=== PATIENT | male | born 1970 | race Hispanic/Latino ===

== ENCOUNTER 2019-11-29 10:02 | Inpatient (IN) | payer SELFPAY ==
[2019-11-29] MEDS ORDERED: Pantoprazole 40 MG VIAL ONE (10:21)
[2019-11-29 11:06] LABS: Hemoglobin 8.1 g/dL (14.0-18.0); Mean Corpuscular HGB CONC 30.7 g/dL (32.0-36.0); Mean Corpuscular Hemoglobin 32.3 pg (27.0-31.0); Mean Platelet Volume 10.6 fL (7.4-10.4); Platelet Count 255 thou/uL (130-400); RBC Distribution Width 14.7 % (11.5-14.5); Red Blood Cell (RBC) Count 2.52 mill/uL (4.70-6.10); White Blood Cell (WBC) Count 22.2 thou/uL (4.8-10.8)
--- NOTE | 2019-11-29 11:06 | RAD ---
PORTABLE CHEST 1 VIEW: Date: 11/29/2019 Time: 1059 hours HISTORY: Chest pain. FINDINGS: The heart size is normal. The aorta is tortuous. The lungs are well expanded without lobar consolidat ion, pneumothoraces, or pleural effusions. IMPRESSION: No acute process. POS: TPC
[2019-11-29 11:12] LABS: INR-International Normal Ratio 1.4; PTT 25.7 SEC (22.9-36.1); Prothrombin Time 16.8 SEC (12.0-14.7)
[2019-11-29] MEDS ORDERED: Vancomycin 1 GM/200 ML BAG ONE (11:26)
[2019-11-29] MEDS ORDERED: Cefepime 2 GM VIAL ONE (11:26)
[2019-11-29 11:36] LABS: Band 19 % (5-11); Hypochromia SLIGHT = 6-15 cells (100X) (0-5/hpf); Lymphocytes 18 % (21-51); MDiff Complete? YES; Metamyelocyte 1 % (0-0); Monocytes 1 % (0-10); Myelocyte 2 % (0-0); Neutrophil 59 % (42-75); Nucleated RBC 2 % (0); Platelet Morphology Comment Appears Adequate; Polychromasia MARKED = >4 cells (100X) (0-2/hpf)
[2019-11-29 11:40] LABS: ALT (SGPT) 62 U/L (8-55); AST (SGOT) 48 U/L (5-34); Albumin 2.6 g/dL (3.5-5.0); Alkaline Phosphatase 285 U/L (40-110); Anion Gap 32 mmol/L (10-20); BUN (Urea Nitrogen) 54 mg/dL (8.9-20.6); Bilirubin, Total 1.4 mg/dL (0.2-1.2); CK (CPK) 79 U/L (30-200); Calc. Creatinine Clearance 0 mL/min (70-130); Calcium 9.4 mg/dL (7.8-10.44); Carbon Dioxide 11 mmol/L (22-29); Chloride 108 mmol/L (98-107); Estimated GFR-MDRD 58; Globulin 3.2 g/dL (2.4-3.5); Lipase 135 U/L (8-78); Magnesium 2.4 mg/dL (1.6-2.6); Protein, Total 5.8 g/dL (6.0-8.3); Sodium 146 mmol/L (136-145)
[2019-11-29 11:45] LABS: Glucose 644 mg/dL (70-105)
[2019-11-29] MEDS ORDERED: Insulin Regular 300 UNITS/3 ML VIAL ONE (11:57)
--- NOTE | 2019-11-29 12:15 | PDOC.FPRHP ---
- History of Present Illness Chief Complaint: vomiting blood and lathargic. History of Present Illness: 49yo frisian-speaking male with PMHx of DMII and cirrhosis, off all medications for past 4 years and has seen physician during that time presents via EMS per hossein wishes. Pt history obtained via tail puller. Pt poor historian and himself does not endorse any complaints. Much of history obtained via justus at beside. Per justus, had episode of CP, L arm numbness, and hematemasis on Monday night. Pt himself denies complaints and denies the event itself. This morning was noticed by room mate to need help as pt was lethargic and unable to keep balance. Pt slipped and fell in the bathroom. hossein was called and called 911 for Ambulance picked pt up from house and brought to the ED. Pt denies any pain, and no further CP. Complaints of recent 8lb weight loss, increased urination and thirst. Pt was admitted approx 5 years ago for similar presentation and at that time diagnosed with DMII and cirrhosis. Was discharged and on insulin for about 1 year but since has been off and has not seen physician. ED Course: given 5 units insulin, vanc and cefepime. given protonix. 1L NS and 2L LR. - Allergies/Adverse Reactions Allergies Allergy/AdvReac Type Severity Reaction Status Date / Time No Known Drug Allergies Allergy Verified 11/29/19 12:30 - Home Medications Comments: none - History PMHx: cirrhosis from etoh use, DM type II was previously on metformin and insulin. PSHx: none FHx: mother: DM. father: DM, passed in his sleep. Social: smokes cigarettes occasionally, denies etoh use currently prior alcoholic with >15 beers /day and stopped 5 years ago. Denies illicit drug use. Has [facility]. Code status: Full code - Review of Systems General: reports: weight/appetite/sleep changes (8 lb loss) Eyes: denies: eye pain, vision changes ENT: denies: nasal congestion Respiratory: denies: cough Cardiovascular: denies: chest pain, edema Gastrointestinal: reports: nausea, vomiting, abdominal pain, GI bleeding Skin: denies: rashes Musculoskeletal: reports: other. denies: pain, swelling Neurological: reports: numbness (B bottom feet, burning pain for 3 years.), weakness (generalized with falling.) - Vital signs BP: 95/62 HR: 120 RR: 15 Tmax: 97.6 Pox: 100% on ra Wt: 45kg - Physical Exam Constitutional: NAD, awake, alert and oriented, other (cachectic appearing) HEENT: PERRLA, EOMI, other (dry MM, poor dentition) Neck: trachea midline Heart: RRR, normal S1/S2, no murmurs/rubs/gallops, pulses present, no edema Lungs: CTAB, no respiratory distress, good air movement, no rales/rhonchi, no wheezing Abdomen: soft, non-tender, bowel sounds present Musculoskeletal: other (decreased muscle mass) Neurological: no focal deficit, normal sensation Skin: no rash/lesions FMR H&P: Results - Labs Result Diagrams: 11/29/19 10:51 11/29/19 13:57 Lab results: WBC 22.2 thou/uL (4.8-10.8) H 11/29/19 10:51 Hgb 8.1 g/dL (14.0-18.0) L 11/29/19 10:51 Hct 26.5 % (42.0-52.0) L 11/29/19 10:51 MCV 105.0 fL (78.0-98.0) H 11/29/19 10:51 Plt Count 255 thou/uL (130-400) 11/29/19 10:51 Band Neuts % (Manual) 19 % (5-11) H 11/29/19 10:51 Sodium 146 mmol/L (136-145) H 11/29/19 10:51 Potassium 5.0 mmol/L (3.5-5.1) 11/29/19 10:51 Chloride 108 mmol/L (98-107) H 11/29/19 10:51 Carbon Dioxide 11 mmol/L (22-29) L 11/29/19 10:51 BUN 54 mg/dL (8.9-20.6) H 11/29/19 10:51 Creatinine 1.30 mg/dL (0.7-1.3) 11/29/19 10:51 Glucose 644 mg/dL (70-105) H* 11/29/19 10:51 Lactic Acid 17.0 mmol/L (0.5-2.2) H* 11/29/19 10:51 Calcium 9.4 mg/dL (7.8-10.44) 11/29/19 10:51 Total Bilirubin 1.4 mg/dL (0.2-1.2) H 11/29/19 10:51 AST 48 U/L (5-34) H 11/29/19 10:51 ALT 62 U/L (8-55) H 11/29/19 10:51 Alkaline Phosphatase 285 U/L (40-110) H 11/29/19 10:51 Ammonia 64 umol/L (18-72) 11/29/19 11:06 Creatine Kinase 79 U/L (30-200) 11/29/19 10:51 B-Natriuretic Peptide 18.8 pg/mL (0-100) 11/29/19 10:51 Serum Total Protein 5.8 g/dL (6.0-8.3) L 11/29/19 10:51 Albumin 2.6 g/dL (3.5-5.0) L 11/29/19 10:51 Lipase 135 U/L (8-78) H 11/29/19 10:51 - EKG Interpretation EKG: Sinus tachycardia. No axis dev, no acute T wave or ST changes. - Radiology Interpretation Chest x-ray Status: report reviewed by me (no acute CPP) FMR H&P: A/P - Problem List (1) DKA (diabetic ketoacidoses) Current Visit: Yes Status: Acute Code(s): E11.10 - TYPE 2 DIABETES MELLITUS WITH KETOACIDOSIS WITHOUT COMA (2) Upper GI bleed Current Visit: Yes Status: Acute Code(s): K92.2 - GASTROINTESTINAL HEMORRHAGE, UNSPECIFIED (3) Macrocytic anemia Current Visit: Yes Status: Acute Code(s): D53.9 - NUTRITIONAL ANEMIA, UNSPECIFIED (4) Cirrhosis of liver Current Visit: Yes Status: Acute Code(s): K74.60 - UNSPECIFIED CIRRHOSIS OF LIVER (5) SIRS (systemic inflammatory response syndrome) Current Visit: Yes Status: Acute Code(s): R65.10 - SIRS OF NON-INFECTIOUS ORIGIN W/O ACUTE ORGAN DYSFUNCTION (6) Lactic acidosis Current Visit: Yes Status: Acute Code(s): E87.2 - ACIDOSIS (7) JUS (acute kidney injury) Current Visit: Yes Status: Acute Code(s): N17.9 - ACUTE KIDNEY FAILURE, UNSPECIFIED (8) Severe protein-calorie malnutrition Current Visit: Yes Status: Acute Code(s): E43 - UNSPECIFIED SEVERE PROTEIN- CALORIE MALNUTRITION - Plan 49 y/o M admitted to [facility] for insulin drip to treat DKA. 1. DKA - glu 644, corrected NA 155, K 5.0, Bhb 1.95, Lactic Acid 17, anion gap 32 - given 10 units insulin in ED, started on banana bag , and 3 L IVF bolus ordered - Start insulin drip and DKA protocol. 2. SIRs, tachycardia and WBC 22.2 - most likely due to being dehydrated and hemconcentrated. - will monitor closely for improvement once adequately resuscitated 3. Upper GI bleed - H/H 8.1/26.6 - ABG showed hgb 6.7, will transfuse 1 unit pRBC - Continue protonix bid - will consider GI consult, due to possible esophageal varices in setting of cirrhosis 4. Macrocytic anemia - MCV 105 - ordered iron studies, b12 and folate 5. Cirrhosis, from alcohol use - ordered RUQ sonogram - ordered HIV/RPR/Hep B and C - INR: 1.4 - MELD score: 14 6. Sever protein malnutrition - Cachetic appearance - albumin 2.6 - dietary consulted 7. Lactic Acidosis - most likely due to DKA and anion gap acidosis - will recheck in 2 hours / 8. JUS - Cr 1.3 - will monitor closely for improvement, most likely from dehydration from dka. Code status: full code Diet: NPO, CC when off insulin drip DVT ppx: SCD's Dispo: stable, admit to [facility] for insulin drip and DKA protocol Q4H BMP FMR H&P: Upper Level - Plan Date/Time: 11/29/19 1215 Alexandro Ramírez, have evaluated this patient with the purchasing internship and agree with findings/plan as outlined by purchasing internship resident. Pertinent changes/additions are listed here. This is a 49 yo male with a pmh alcoholic cirrhosis, DM2 who presents to the ED with cc of AMS and generalized weakness. He states that he has not taken anything for his diabetes in over 5 years and has not had any hospitalizations. He reports polyuria, polydipsia. He reports some nausea with bloody emesis on Monday. Today he was seen by some friends who noted him falling over and very weak. The called the pts justus who called EMS. She also reports that he was complaining of chest pain with radiation to his left arm, but the patient denies this. He states he has not seen in many years and is unsure what medications he had in the past. Objective: Vitals BP 95/62, HR 122, RR 16, SpO2 100% on room air, Temp 97.4 General: Lethargic, GCS [id number], Cachectic HEENT: Dry mm, poor dentition Cardio: Tachycardic, no murmurs Resp: CTAB, no adventious sounds Abdomen: Flat, BS+, mild diffuse tenderness, no rebound tenderness Extremities: Normal monofilament exam on feet, pulses present, nails slightly thickened See purchasing internship note for further details Diabetic Ketoacidosis -Admit to IMCU -DKA protocol -Monitor potassium and replace as needed -CM for medication affordance -Anion gap of 32 SIRS without a source -Likely 2/2 above Lactic acidosis -Likely 2/2 dehydration, will repeat Upper GI bleed -Not actively bleeding, will monitor -Consider GI consult when more stable -Monitor Hgb and transfuse one unit Alcoholic cirrhosis -Pending RUQ US -Hep panel, RPR -Recommend Hep A/B vaccine upon DC -Meld score 14 History of alcohol abuse -UDS Calorie-protein malnutrition -Consult volunteer fire fighter Code: Full Prophylaxis: protonix, SCDs Family: Fianc at bedside Fluids: per DKA protocol Drips: Insulin drip Diet: NPO Condition: Stable Disposition: DC in 2-3 days PCP: None, CC Addendum - Attending - Attending Attestation Date/Time: 11/29/19 1500 I personally evaluated the patient and discussed the management with Dr. Saldaña. I agree with the History, Examination, Assessment and Plan documented above with any addition or exceptions noted below. 49 y.o. ARENAS with h/o DM2, ETOH cirrhosis, here with lethargy, CP, numbness found to have hyperglycemia, AG Acidosis->DKA. IMCU, IVF resuscitation, Insulin GTT, Lyte mgt. Also c/o's hematemesis, though not acutely since admit. H/o cirrhosis--will consult GI. NAD, Lungs CTA BBS, RRR w/o M/R/G.
[2019-11-29] MEDS ORDERED: HUMULIN R 100 UNITS in Sodium Chloride 0.9% 100 ML IVPB SCH ×2 (12:30→13:00)
[2019-11-29] MEDS ORDERED: CCU Electrolyte Replacement 1 EACH IVPB ONE (12:55)
[2019-11-29] MEDS ORDERED: NS 0.9% w/ 20 MEQ KCL 1,000 ML IV PRN (12:55)
[2019-11-29] MEDS ORDERED: Dextrose 5 %-0.45 % NaCl 1,000 ML IV PRN (12:55)
[2019-11-29] MEDS ORDERED: Sodium Chloride 0.9% 1,000 ML IV PRN ×4 (12:55)
[2019-11-29] MEDS ORDERED: CCU ELECTROLYTE REPLACEMENT PROTOCOL FS PRN (13:18)
[2019-11-29] MEDS ORDERED: Magnesium Oxide 400 MG TAB PO PRN ×2 (13:18)
[2019-11-29] MEDS ORDERED: Potassium Phosphate 12 MMOL in Sodium Chloride 0.9% 250 ML 250 ML IV PRN (13:18)
[2019-11-29] MEDS ORDERED: Potassium Chloride 20 MEQ TAB PO PRN (13:18)
[2019-11-29] MEDS ORDERED: PHOS-NAK 1 PKT PACK PO PRN ×2 (13:18)
[2019-11-29] MEDS ORDERED: Potassium Chloride 40 MEQ in Sodium Chloride 0.9% 250 ML 250 ML IVPB PRN (13:18)
[2019-11-29] MEDS ORDERED: Potassium Phosphate 15 MMOL in Sodium Chloride 0.9% 250 ML 250 ML IV PRN (13:18)
[2019-11-29] MEDS ORDERED: Potassium Chloride 40 MEQ in Premix Bag 1 BAG IVPB PRN (13:18)
[2019-11-29] MEDS ORDERED: Potassium Phosphate 9 MMOL in Sodium Chloride 0.9% 100 ML IVPB PRN (13:18)
[2019-11-29] MEDS ORDERED: Magnesium 2 GM/50 ML 2 GM in Premix Bag 1 BAG IVPB PRN (13:18)
[2019-11-29 13:26] LABS: Actual Bicarbonate (HCO3a) 10.5 mEq/L (22-28); Analyzer IN Cardio ER; Base Excess (BEa) -14.6 mEq/L (-2.0 to +3.0); Calcium, Ionized 1.25 mmol/L (1.12-1.30); Carboxyhemoglobin (COHb) 0.3 gm% (0.0-3.0); Hemoglobin (Hb) 6.7 g/dL (14.0-18.0); O2 Tension (PaO2) 112.8 mmHg (80.0-100.0); Potassium - ABG Lab 3.77 mmol/L (3.70-5.30)
[2019-11-29 13:28] LABS: ALV-art Gradient 9.305 (0-20); CO2 Tension 22.1 mmHg (35.0-45.0); Puncture Site RBA
[2019-11-29] MEDS ORDERED: Multivitamins, Adult 10 ML, Thiamine HCl 100 MG, Folic Acid 1 MG in Dextrose 5 %-0.45 %... IV SCH (13:30)
[2019-11-29 13:34] LABS: Bilirubin Negative (Negative); Blood, Urine Negative (Negative); Clarity Clear (Clear); Glucose, Urine (Dipstick) Greater than 1000 mg/dL (Negative); Leukocyte 25 Leu/uL (Negative); Mucous/LPF Rare LPF (<2+); Nitrite Negative (Negative); Protein, Urine (Dipstick) Negative (Neg-Trace); RBC/HPF 0-3 HPF (0-3); Squamous Epithelial 0-3 HPF (0-3); Urobilinogen Normal mg/dL (Less than 2); WBC/HPF 0-3 HPF (0-3)
[2019-11-29 13:39] LABS: Bacteria/HPF 1+ HPF (None Seen)
[2019-11-29 13:42] LABS: Yeast-Budding 1+ HPF (None Seen)
[2019-11-29 14:38] LABS: Anion Gap 25 mmol/L (10-20); BUN (Urea Nitrogen) 53 mg/dL (8.9-20.6); Calc. Creatinine Clearance 0 mL/min (70-130); Calcium 8.9 mg/dL (7.8-10.44); Carbon Dioxide 13 mmol/L (22-29); Chloride 114 mmol/L (98-107); Estimated GFR-MDRD 63; Glucose 537 mg/dL (70-105); Magnesium 2.3 mg/dL (1.6-2.6); Phosphorus 3.3 mg/dL (2.3-4.7); Potassium 4.8 mmol/L (3.5-5.1); Sodium 147 mmol/L (136-145)
[2019-11-29 14:39] LABS: Iron 106 ug/dL (65-175); Iron Binding Capacity, Total 206 mcg/dL (261-462)
[2019-11-29 14:43] LABS: Troponin I Less than 0.010 ng/mL (< 0.028)
[2019-11-29 14:48] VITALS: BMI 17.3
[2019-11-29 14:56] LABS: Syphilis Antibody Nonreactive (Nonreactive); Syphilis Antibody Index 0.04 S/CO (<1.00 Non-Reactive)
[2019-11-29 14:57] LABS: Ferritin 256.78 ng/mL (22-322)
--- NOTE | 2019-11-29 15:07 | ULT ---
EXAM: US Gallbladder RUQ CLINICAL HISTORY: Cirrhosis.. COMPARISON: None. FINDINGS: Pancreas: Obscured by bowel gas Liver:Heterogeneous echotexture which may be due to hepatic steatosis or hepatocellular disease. Limi ludwin evaluation for hepatic masses and intrahepatic biliary dilatation. Right hepatic lobe: 12.1 cm Gallbladder: Multiple echogenic foci of debris within the lumen of gallbladder. Gallbladder wall is t hickened measuring 0.42 cm. There is evidence of pericholecystic fluid as well as free fluid in the right upper quadrant. Oswald's sign:Negative Portal Vein: Limited evaluation. Possible portal vein occlusion. Bile ducts: Limited evaluation. Right kidney: No hydronephrosis. Right kidney measures 10.1 cm in length. IMPRESSION: 1. Ascites. 2. Echogenic liver which may be due to hepatic steatosis or hepatocellular disease. Limited evaluatio n for hepatic masses. 3. Debris and stones within the gallbladder. Gallbladder wall is thickened. There is evidence of free fluid in the gallbladder fossa which may be due to ascites. Negative Oswald's sign. HIDA scan if there is concern for cholecystitis. 4. Possibly thrombosed portal vein. Abdomen and pelvic CT is recommended. Results study conveyed to Dr. Colby via [employer] 11/29/2019 at 3:04 PM Code CR
[2019-11-29 15:13] LABS: HBSAB Concentration 0.74 mIU/mL; HBSAg Index 0.16 S/CO (0-0.99); HIV (1/2) Antibody/Antigen Non-Reactive (NonReactive); HIV 1/2 INDEX 0.08 S/CO (<1.00); Hep B Core Total Ab Non-Reactive (NonReactive); Hep B Core Total Index 0.06 S/CO (0-0.79); Hep B Surf AB Non-Reactive (NonReactive); Hep B Surf Ag Non-Reactive S/CO (NonReactive)
[2019-11-29 15:17] LABS: Lactic Acid 15.4 mmol/L (0.5-2.2)
[2019-11-29] MEDS: NS 0.9% w/ 20 MEQ KCL 1,000 ML IV PRN ×2 (17:48→19:52)
[2019-11-29 18:55] LABS: Hemoglobin 6.7 g/dL (14.0-18.0)
[2019-11-29 19:13] LABS: Anion Gap 11 mmol/L (10-20); BUN (Urea Nitrogen) 45 mg/dL (8.9-20.6); Calc. Creatinine Clearance 67 mL/min (70-130); Calcium 7.9 mg/dL (7.8-10.44); Carbon Dioxide 20 mmol/L (22-29); Chloride 119 mmol/L (98-107); Estimated GFR-MDRD Greater than 90; Glucose 404 mg/dL (70-105); Potassium 4.6 mmol/L (3.5-5.1); Sodium 145 mmol/L (136-145)
[2019-11-29 19:20] LABS: Anisocytosis SLIGHT = 6-15 cells (100X) (0-5/hpf); Band 28 % (5-11); Hemoglobin 6.6 g/dL (14.0-18.0); Hypochromia SLIGHT = 6-15 cells (100X) (0-5/hpf); Lymphocytes 17 % (21-51); MDiff Complete? YES; Mean Corpuscular HGB CONC 32.6 g/dL (32.0-36.0); Mean Corpuscular Hemoglobin 32.4 pg (27.0-31.0); Mean Corpuscular Volume 99.6 fL (78.0-98.0); Mean Platelet Volume 9.5 fL (7.4-10.4); Metamyelocyte 2 % (0-0); Myelocyte 3 % (0-0); Neutrophil 50 % (42-75); Nucleated RBC 1 % (0); Platelet Count 162 thou/uL (130-400); Polychromasia SLIGHT = 2-3 cells (100X) (0-2/hpf); RBC Distribution Width 14.3 % (11.5-14.5); Red Blood Cell (RBC) Count 2.04 mill/uL (4.70-6.10); Schistocytes SLIGHT = 2-5 cells (100X) (0-1/hpf); White Blood Cell (WBC) Count 21.3 thou/uL (4.8-10.8)
--- NOTE | 2019-11-29 20:56 | CON ---
DATE OF CONSULTATION: 11/29/2019 REASON FOR CONSULTATION: Cirrhosis, portal vein thrombosis. CONSULTING PROVIDER: Dr. Jerson Colby. HISTORY OF PRESENT ILLNESS: The patient is a 49-year-old male with past medical history of diabetes, chronic anemia, hyperlipidemia, and alcoholic cirrhosis, presenting with complaints of increased lethargy, chest pain, and hematemesis. The patient states that he was in his usual state of health until earlier this week when he began experiencing increased chest pain, lethargy, along with nausea and vomiting with 2 episodes of hematemesis on Monday night. This was followed by the appearance of one solid black stool following day, but he has not had any further episodes of hematemesis nor hematochezia/melena since then. With his worsening condition, it prompted him to seek healthcare assistance (at the insistence of his fiancee) at [facility] for further evaluation. While in the ER, he was noted to have a significantly elevated blood sugar level and was in diabetic ketoacidosis. He was ultimately admitted to the IMCU for further evaluation and treatment of his DKA. Currently, he endorses weakness in his bilateral lower extremities, increased abdominal distention in the past, but not currently, and jaundice along with systemic itching with the appearance of the jaundice. However, he currently denies any fevers, chills, shortness of breath, lower extremity swelling, diarrhea, or constipation. Upon evaluation of the patient's chart, he states he was initially diagnosed with cirrhosis in 2009 by a physician, who told him that if he stopped drinking, that the cirrhosis would ultimately improve and go away. However, upon further chart review, the patient did have evidence of cirrhosis in 2014. Per imaging obtained at [facility] at that time, he adds that he has not had any alcohol for the last 5 to 6 years. REVIEW OF SYSTEMS: A 10-category review of systems was obtained with all responses negative except for the pertinent positives as listed in HPI. PAST MEDICAL HISTORY: As per HPI. PAST SURGICAL HISTORY: None. FAMILY HISTORY: Denies any GI malignancies. SOCIAL HISTORY: Denies any alcohol or illicit drug use. Smokes approximately 1/4 pack per day. OUTPATIENT MEDICATIONS: None. ALLERGIES: NO KNOWN DRUG ALLERGIES. PHYSICAL EXAMINATION: VITAL SIGNS: Temperature 98.2, pulse 117, blood pressure 133/72, respiratory rate 14, saturating 100% on room air. GENERAL: The patient was lying in bed, in no acute distress. Alert and oriented x4, Pashto-speaking only. HEENT: Normocephalic, atraumatic. NECK: Supple. No JVD or scleral icterus noted. CARDIOVASCULAR: Tachycardic rate, but regular rhythm with no discernible murmurs, gallops, or rubs. RESPIRATORY: Clear to auscultation bilaterally with no discernible wheezes or rales. ABDOMEN: Hypoactive bowel sounds. Soft. Mild to no abdominal distention. Mild tenderness to palpation in all abdominal quadrants. EXTREMITIES: No cyanosis, clubbing, or edema. Multiple ecchymoses and excoriations seen on both the upper and lower limbs. LABORATORY DATA: CBC with a white blood cell count of 22.2, hemoglobin 8.1, hematocrit 26.5, platelets 255. Chemistry with a sodium of 147, potassium 4.8, chloride 114, CO2 of 13, , creatinine 1.21, glucose 537. AST 48, ALT 62, alkaline phosphatase 285, total bilirubin 1.4, albumin 2.6, lipase 135. INR 1.4. Iron 106, ferritin 256, TIBC 206. Acute hepatitis panel negative and HIV negative. IMAGING DATA: Right upper quadrant ultrasound obtained on November 28 showed heterogeneous texture of the liver secondary to steatosis or hepatocellular disease. The exam was limited for the evaluation of hepatic masses. Multiple echogenic foci were seen in the gallbladder with pericholecystic fluid and gallbladder wall thickening concerning for cholecystitis. There was also evidence of possible portal vein occlusion as well as the presence of small ascites. ASSESSMENT AND PLAN: The patient is a 49-year-old male with past medical history of diabetes, chronic anemia, hyperlipidemia, and cirrhosis, presenting with diabetic ketoacidosis and what appears to be decompensated cirrhosis with recent hematemesis. 1. Hematemesis. The patient is presenting with 2 episodes of hematemesis that he characterized as dark black colored emesis, that was followed by the appearance of a dark black solid stool the following day. While the patient does have a concurrent history of cirrhosis of the liver with concern for esophageal varices, this pattern of bleeding does not necessarily fit an esophageal varix bleed, but could be due to portal hypertension with nausea and vomiting secondary to early diabetic ketoacidosis or even peptic ulcer disease. Differential for his hematemesis could include portal hypertension, peptic ulcer disease, esophagitis, gastritis, esophageal varices, arteriovenous malformation, Dieulafoy lesion and/or GI neoplasm (less likely). Recommendations;. a. Would continue to monitor the patient's H and H. Would continue to trend the patient's H and H and transfuse as necessary to maintain an H and H of at least 7/21. b. Continue to monitor clinically for signs of active GI bleeding. c. Would continue the patient on pantoprazole 40 mg IV b.i.d. d. Would consider placing the patient on octreotide drip in light of possible variceal bleeding. e. Would continue to aggressively treat his diabetic ketoacidosis and once stabilized, would recommend an upper endoscopy for evaluation of the etiology of his hematemesis. f. Would monitor the patient's volume status and if volume overloaded, could exacerbate variceal bleeding. Would consider use of periodic Lasix in order to combat hypervolemia. 2. Cirrhosis. The patient is presenting with a history of cirrhosis with the most likely etiology being chronic alcohol use and with evident cirrhosis consisting of cirrhotic morphology in 2015 in addition to imaging consistent with the diagnosis at this time. He also has presence of hypoalbuminemia, but it is unclear if this is due to nutritional status versus cirrhosis of the liver. Since the diagnosis in our system, he has not been regularly followed by any physician nor route relief driver for his cirrhosis and has not undergone regular maintenance for cirrhosis including screening for esophageal varices, screening colonoscopy, or screening for hepatocellular carcinoma. Currently, with decompensated disease with MELD score of 13 and Child-Diaz classification B. recommendations;. a. Would recommend obtaining a CT scan 3-phase of the liver for evaluation of possible hepatoma contributing to his possible portal vein thrombosis and further characterization of the portal vein thrombosis. b. Anticoagulation is not indicated at this time, given the higher likelihood of chronic pain of portal vein thrombosis and cirrhosis of the liver. c. Would obtain a paracentesis for his ascites and rule out SBP in light of his abdominal pain on physical examination. d. Would obtain an AFP again for evaluation of possible hepatocellular carcinoma. e. Would normally recommend screening upper endoscopy and colonoscopy for this patient, but we will hold off on these for now while his diabetic ketoacidosis is being managed. We will continue to follow. Please call with any questions. Job ID: [id number]
[2019-11-29] MEDS: Octreotide Acetate 1,250 MCG in Sodium Chloride 0.9% 250 ML 250 ML IVPB SCH (21:38)
[2019-11-29] MEDS: Pantoprazole 40 MG VIAL IVP SCH (21:38)
[2019-11-29 21:44] LABS: Anion Gap 9 mmol/L (10-20); BUN (Urea Nitrogen) 41 mg/dL (8.9-20.6); Calc. Creatinine Clearance 72 mL/min (70-130); Calcium 7.8 mg/dL (7.8-10.44); Carbon Dioxide 22 mmol/L (22-29); Chloride 121 mmol/L (98-107); Estimated GFR-MDRD Greater than 90; Glucose 317 mg/dL (70-105); Potassium 4.5 mmol/L (3.5-5.1); Sodium 147 mmol/L (136-145)
--- NOTE | 2019-11-29 23:00 | CT ---
CLINICAL HISTORY: Left upper abdominal pain with possible portal vein thrombosis. TECHNIQUE: Multiple contiguous axial images were obtained and a CT of the abdomen without and with IV contrast. Postcontrast images were obtained in the arterial and portal venous phases. Coronal and sagittal reformats were performed. Oral contrast was administered. COMPARISON: None. FINDINGS: Liver: Size: Normal. Contour: Smooth. Mass: None. A thrombus is seen within the main portal vein extending into the liver. This appeared mesenteric vei n and splenic vein are patent. Multiple esophageal varices are seen. There is the beginning of cavernous transformation of the portal vein in the caroline hepatis. Gallbladder and biliary system: Calcified gallstones in the neck. No biliary ductal dilatation. Spleen: Normal. Pancreas: Normal. Kidneys: Normal. Adrenal glands: Normal. GI tract: Normal. Abdominal aorta and its major branches: Normal. No aneurysm. Peritoneum/retroperitoneum: Mild ascites. No adenopathy. Body wall and musculoskeletal: Degenerative changes in the spine. Visualized lower thorax: Normal. No pulmonary parenchymal mass or pleural effusion. IMPRESSION: 1. Portal vein thrombosis with developing varices and cavernous transformation of the portal vein. 2. Cholelithiasis
[2019-11-29] MEDS: D5 1/2 NS w/20 mEq KCL 1,000 ML IV PRN (23:17)
[2019-11-30] MEDS: D5 1/2 NS w/20 mEq KCL 1,000 ML IV PRN (03:33)
[2019-11-30 04:09] LABS: ALT (SGPT) 51 U/L (8-55); AST (SGOT) 55 U/L (5-34); Albumin 2.1 g/dL (3.5-5.0); Alkaline Phosphatase 189 U/L (40-110); Anion Gap 9 mmol/L (10-20); BUN (Urea Nitrogen) 34 mg/dL (8.9-20.6); Bilirubin, Total 0.8 mg/dL (0.2-1.2); Calc. Creatinine Clearance 82 mL/min (70-130); Calcium 7.4 mg/dL (7.8-10.44); Carbon Dioxide 20 mmol/L (22-29); Chloride 121 mmol/L (98-107); Estimated GFR-MDRD Greater than 90; Globulin 2.4 g/dL (2.4-3.5); Glucose 125 mg/dL (70-105); Potassium 4.1 mmol/L (3.5-5.1); Protein, Total 4.5 g/dL (6.0-8.3); Sodium 146 mmol/L (136-145)
--- NOTE | 2019-11-30 06:55 | PDOC.FM ---
- Subjective Subjective: Doign well this AM c/o slight abd pain. receiving abd sono at moment. Gap closed and coming off insulin drip soon to feed after bolus insulin given. - Objective MAR Reviewed: Yes Vital Signs & Weight: Vital Signs (12 hours) Temp Resp 11/30/19 04:00 98.6 F 11/30/19 03:28 14 11/30/19 00:00 98.1 F 11/29/19 19:52 98.6 F Weight Weight 45.8 kg Most Recent Monitor Data Heart Rate from ECG 87 NIBP 100/56 NIBP BP-Mean 70 Respiration from ECG 14 SpO2 100 I&O: 11/28/19 11/29/19 11/30/19 06:59 06:59 06:59 Intake Total 3738 Output Total 325 Balance 3413 Result Diagrams: 11/30/19 09:23 11/30/19 13:08 Phys Exam - Physical Examination Constitutional: NAD HEENT: moist MMs scleral icterus Neck: no nodes, supple Respiratory: no wheezing, no rales, no rhonchi, clear to auscultation bilateral Cardiovascular: RRR, no significant murmur, no rub Gastrointestinal: soft, no distention, positive bowel sounds slight diffuse abd TTP Musculoskeletal: no edema, pulses present Neurological: non-focal, moves all 4 limbs Psychiatric: normal affect, A&O x 3 Skin: no rash, normal turgor, cap refill <2 seconds Deviation from normal: jaundice skin Dx/Plan (1) DKA (diabetic ketoacidoses) Code(s): E11.10 - TYPE 2 DIABETES MELLITUS WITH KETOACIDOSIS WITHOUT COMA Status: Acute (2) Upper GI bleed Code(s): K92.2 - GASTROINTESTINAL HEMORRHAGE, UNSPECIFIED Status: Acute (3) Macrocytic anemia Code(s): D53.9 - NUTRITIONAL ANEMIA, UNSPECIFIED Status: Acute (4) Cirrhosis of liver Code(s): K74.60 - UNSPECIFIED CIRRHOSIS OF LIVER Status: Acute (5) SIRS (systemic inflammatory response syndrome) Code(s): R65.10 - SIRS OF NON-INFECTIOUS ORIGIN W/O ACUTE ORGAN DYSFUNCTION Status: Acute (6) Lactic acidosis Code(s): E87.2 - ACIDOSIS Status: Acute (7) JUS (acute kidney injury) Code(s): N17.9 - ACUTE KIDNEY FAILURE, UNSPECIFIED Status: Acute (8) Severe protein-calorie malnutrition Code(s): E43 - UNSPECIFIED SEVERE PROTEIN-CALORIE MALNUTRITION Status: Acute - Plan Plan: 49 y/o M admitted to [facility] for insulin drip to treat DKA. 1. DKA - glu 644, corrected NA 155, K 5.0, Bhb 1.95, Lactic Acid 17, anion gap 32 - Gap closed to 5, glucose 125, Na 146. - given 10 units insulin in ED, started on banana bag , and 3 L IVF bolus ordered - insulin drip and DKA protocol overnight. switch to 70/30 insulin. 2. SIRs, tachycardia and WBC 22.2 - most likely due to being dehydrated and hemconcentrated. - will monitor closely for improvement once adequately resuscitated - paracentesis to rule out SBP 3. Upper GI bleed - H/H 8.1/26.6 - ABG showed hgb 6.7, will transfuse 1 unit pRBC - Continue protonix bid - GI consult Dr. Eduardo, appreciate recommendations -3 [address] scan: portal vein thrombosis with developing varices and cavernous transformation of portal vein. Cholelithiasis. -Periodic lasix to avoid volume overload and exacerbate varices. - continue protonix 40 mg bid - monitor H%H and transfuse below 7, given 1 unit pRBC on 11/29, repeat H&H 4 hrs post transfusion - upper EGD once stable. - paracentesis to rule out sbp - afp 4. Macrocytic anemia - MCV 105 - ordered iron studies: consistent with anemia of chronic disease, b12 2000 and folate 13.7 5. Cirrhosis, from alcohol use - ordered RUQ sonogram - ordered HIV/RPR/Hep B non-reactive and hep C pending - INR: 1.4 - MELD score: 13, Child-Diaz classification B. 6. Severe protein malnutrition - Cachetic appearance, could be due to cirrhosis vs untreated DM . - albumin 2.6 - dietary consulted 7. Lactic Acidosis - most likely due to DKA and hyperchloremic anion gap acidosis - LA 17-> 15, AM LA pending 8. JUS, improved - Cr 1.3 -> 0.7 - will monitor closely for improvement, most likely from dehydration from dka. Code status: full code Diet: NPO, CC when off insulin drip DVT ppx: SCD's Dispo: stable, admit to IMCU for insulin drip and DKA protocol Q4H [facility] Addendum - Attending - Attending Attestation Date/Time: 11/30/191821 I personally evaluated the patient and discussed the management with [Piotr] I agree with the History, Examination, Assessment and Plan documented above with any addition or exceptions noted below. DKA resolving and plan t/f to floor with further workup treatment pending before discharge
[2019-11-30 07:31] LABS: Hemoglobin 8.2 g/dL (14.0-18.0); Mean Corpuscular HGB CONC 31.8 g/dL (32.0-36.0); Mean Corpuscular Hemoglobin 31.4 pg (27.0-31.0); Mean Corpuscular Volume 98.6 fL (78.0-98.0); Mean Platelet Volume 9.5 fL (7.4-10.4); Platelet Count 123 thou/uL (130-400); RBC Distribution Width 14.2 % (11.5-14.5)
[2019-11-30 07:38] LABS: Lactic Acid 1.7 mmol/L (0.5-2.2)
[2019-11-30] MEDS ORDERED: Insulin Glargine 20 UNITS in Pre-Filled Syringe 1 EACH SC SCH (08:00)
[2019-11-30] MEDS ORDERED: FLU VACC QS2019-20(6MOS UP)/PF 60 MCG/0.5 ML SYRINGE IM ONE (09:00)
[2019-11-30] MEDS ORDERED: Sodium Bicarb 50 MEQ/50 ML VIAL ONE (09:21)
[2019-11-30] MEDS: Pantoprazole 40 MG VIAL IVP SCH ×2 (09:33→20:51)
[2019-11-30 09:38] LABS: Hemoglobin 7.8 g/dL (14.0-18.0)
[2019-11-30 09:39] LABS: Mean Corpuscular HGB CONC 32.8 g/dL (32.0-36.0); Mean Corpuscular Hemoglobin 32.5 pg (27.0-31.0); Mean Platelet Volume 9.5 fL (7.4-10.4); Platelet Count 132 thou/uL (130-400); RBC Distribution Width 14.4 % (11.5-14.5); Red Blood Cell (RBC) Count 2.45 mill/uL (4.70-6.10)
--- NOTE | 2019-11-30 10:14 | ULT ---
Exam: Ultrasound guided paracentesis HISTORY: Ascites COMPARISON: None FINDINGS: Successful ultrasound-guided paracentesis. Total of 10 cc of clear ascites was aspirated. TECHNIQUE: Consent obtained reformatory ultrasound-guided paracentesis. Right lower quadrant was deem ed appropriate. Skin was prepped and draped in a sterile fashion. 1% lidocaine, buffered with sodium bicarbonate was used for local anesthesia. Under ultrasound guidance, a 5 Norwegian 7 cm Yueh cat heter is advanced in the peritoneal space. A total of 10 cc of clear ascites was aspirated. No immediate or postprocedural complications IMPRESSION: Successful ultrasound-guided paracentesis.
[2019-11-30 10:33] LABS: Band 2 % (5-11); Lymphocytes 7 % (21-51); MDiff Complete? YES; Monocytes 15 % (0-10); Neutrophil 76 % (42-75); Nucleated RBC 4 % (0); Platelet Morphology Comment Appears Decreased; Polychromasia MODERATE = 3-4 cells (100X) (0-2/hpf); White Blood Cell (WBC) Count 21.9 thou/uL (4.8-10.8)
[2019-11-30 10:48] LABS: Band 4 % (5-11); Lymphocytes 8 % (21-51); MDiff Complete? YES; Monocytes 11 % (0-10); Neutrophil 76 % (42-75); Nucleated RBC 3 % (0); Platelet Morphology Comment Appears Decreased; Polychromasia MODERATE = 3-4 cells (100X) (0-2/hpf); White Blood Cell (WBC) Count 22.9 thou/uL (4.8-10.8)
[2019-11-30 11:21] LABS: BF Color Colorless; Body Fluid Source Ascites Body Fluid; Clarity Clear (Clear); Tube # EDTA
[2019-11-30 11:29] LABS: RBC Count-Automated (BF) 37 /cumm; WBC/Nucleated-Auto (BF) 102 uL
[2019-11-30 12:05] LABS: BF Segmented Neutrophils 14 %; Cell Count Non Hematic 47 %; Eosinophils 1 %; Lymphocytes 38 %
[2019-11-30 13:38] LABS: Anion Gap 9 mmol/L (10-20); BUN (Urea Nitrogen) 28 mg/dL (8.9-20.6); Calc. Creatinine Clearance 77 mL/min (70-130); Calcium 7.8 mg/dL (7.8-10.44); Carbon Dioxide 20 mmol/L (22-29); Chloride 118 mmol/L (98-107); Estimated GFR-MDRD Greater than 90; Glucose 187 mg/dL (70-105); Sodium 143 mmol/L (136-145)
[2019-11-30] MEDS ORDERED: cefTRIAXone\\ROCEPHIN 1 GM in Sodium Chloride 0.9% 100 ML IVPB SCH (15:00)
[2019-11-30] MEDS ORDERED: Dextrose 5% in Water 1,000 ML IV PRN (16:36)
[2019-11-30] MEDS ORDERED: HumaLOG 300 UNITS/3 ML VIAL SC PRN (16:36)
[2019-11-30] MEDS ORDERED: Dextrose 50% Abboject 50 ML SYRINGE SLOW IVP PRN (16:36)
[2019-11-30] MEDS: HumaLOG 300 UNITS/3 ML VIAL SC PRN (16:47)
[2019-11-30] MEDS: Sodium Chloride 0.9% 1,000 ML IV SCH (16:47)
--- NOTE | 2019-11-30 18:22 | PRG ---
DATE OF SERVICE: 11/30/2019 REASON FOR CONSULTATION: Cirrhosis, portal vein thrombosis, and hematemesis. SUBJECTIVE: The patient has responded well to treatment thus far and was ultimately taken off the insulin drip due to closing of his gap for diabetic ketoacidosis. He states that he is doing well this morning, only with mild increased pain in the left lower quadrant secondary to the paracentesis that was done earlier today. Otherwise, he denies any nausea, vomiting, fevers, chills, hematemesis, melena, or hematochezia. OBJECTIVE: VITAL SIGNS: Temperature 98.6, pulse 99, blood pressure 99/48, respiratory rate 16, and saturating 100% on room air. GENERAL: The patient was lying in bed, in no acute distress. Alert and oriented x4. Thai-speaking only. CARDIOVASCULAR: Tachycardic rate, but regular rhythm. RESPIRATORY: Clear to auscultation bilaterally. ABDOMEN: Normoactive bowel sounds. Soft and nondistended. Mild tenderness to palpation in the left lower quadrant. EXTREMITIES: No cyanosis, clubbing, or edema. Multiple ecchymoses and excoriations seen on both the upper and lower extremities. LABORATORY DATA: CBC with a white blood cell count of 22.9, hemoglobin 7.8, hematocrit 24.3, and platelets 132. Chemistry with a sodium of 146, potassium 4.1, chloride 121, CO2 of 20, BUN 34, creatinine 0.4, and glucose 125. AST 55, ALT 51, alkaline phosphatase 189, total bilirubin 0.8, and albumin 2.1. IMAGING DATA: CT of the abdomen and pelvis liver mass protocol was obtained on November 29, 2019, which showed no evidence of mass nor cirrhotic morphology. However, a thrombus was seen within the main portal vein extending into the liver with patency of the mesenteric vein and splenic vein. Multiple esophageal varices were seen as well as cavernous transformation of the portal vein in the caroline hepatis. There was a mild amount of ascites seen, but no other abnormalities noted. Paracentesis was also performed on November 30, 2019, with approximately 10 mL of clear fluid extracted for analysis. ASSESSMENT AND PLAN: The patient is a 49-year-old male with past medical history of diabetes, chronic anemia, hyperlipidemia, and cirrhosis, presenting with diabetic ketoacidosis and decompensated cirrhosis with recent hematemesis. Hematemesis. Prior to admission, the patient had approximately 2 episodes of hematemesis characterized as dark black colored emesis, followed by a dark black solid stool the following day. This occurred approximately 2 days prior to admission, and during this hospitalization, he has not had any further recurrences of either hematemesis nor melena. Given his concurrent diagnosis of cirrhosis and findings on CT, the probability of esophageal varices is high, but whether or not they contributed to his bleeding is unknown at this time. Differential for his hematemesis could include portal hypertensive gastropathy, peptic ulcer disease, esophagitis, esophageal varices, arteriovenous malformation, Dieulafoy lesion and/or gastrointestinal neoplasm. Recommendations: 1. We would continue to trend his H and H and transfuse as necessary to maintain an H and H of 7/21. 2. Continue to monitor clinically for signs of active gastrointestinal bleeding. 3. Continue patient on pantoprazole 40 mg IV b.i.d. 4. We would continue the patient on octreotide drip until after upper endoscopy tomorrow. 5. We will plan for upper endoscopy tomorrow now that the patient has been stabilized in terms of his diabetic ketoacidosis. Please make the patient n.p.o. at midnight. Cirrhosis. The patient is presenting with a history of cirrhosis based on thrombocytopenia, presence of ascites on imaging, esophageal varices on imaging, and prior cirrhotic morphology on imaging as well, with the most likely etiology being chronic alcohol abuse. Currently, with a decompensated disease with a MELD score of 13 and Child-Diaz classification B. CT of the abdomen and pelvis was obtained on November 29, 2019, which did not show any evidence of hepatoma. The patient has not had a screening esophagogastroduodenoscopy or colonoscopy at this point with plans for an upper endoscopy tomorrow for the purpose of possible gastrointestinal bleeding. We would defer screening colonoscopy to later date. Recommendations: 1. The patient will need screening imaging every 6 months for surveillance of possible hepatoma formation in light of cirrhosis. 2. Anticoagulation is not indicated at this time given the appearance of the portal vein thrombosis is chronic in nature. 3. We will follow up on the paracentesis results and confirm portal hypertension in addition to ruling out possible spontaneous bacterial peritonitis. We will follow up on the alpha fetoprotein as well. We will continue to follow. Please call with any questions. Job ID: [id number]
[2019-11-30] MEDS ORDERED: HumuLIN 70/30 (300 UNITS/3 ML VIAL) SC SCH (21:00)
[2019-12-01] MEDS: Sodium Chloride 0.9% 1,000 ML IV SCH ×3 (03:59→22:11)
[2019-12-01] MEDS: Octreotide Acetate 1,250 MCG in Sodium Chloride 0.9% 250 ML 250 ML IVPB SCH (04:06)
[2019-12-01 06:19] LABS: INR-International Normal Ratio 1.1; Prothrombin Time 14.5 SEC (12.0-14.7)
--- NOTE | 2019-12-01 06:29 | PDOC.FM ---
- Subjective Subjective: No acute overnight events. had low BP reading this AM. H/H stable. No obvious bleeding. pt going for EGD this AM. C/o slight abdominal pain. - Objective MAR Reviewed: Yes Vital Signs & Weight: Vital Signs (12 hours) Temp Pulse Resp BP Pulse Ox 12/01/19 03:00 97.8 F 91 16 109/71 100 11/30/19 23:00 98.0 F 91 16 115/72 98 11/30/19 19:00 97.3 F L 93 16 141/81 H 96 Weight Admit Weight 45.359 kg Weight 45.8 kg Most Recent Monitor Data Heart Rate from ECG 99 NIBP 99/48 NIBP BP-Mean 65 Respiration from ECG 0 SpO2 100 I&O: 11/29/19 11/30/19 12/01/19 06:59 06:59 06:59 Intake Total 3738 1600 Output Total 325 Balance 3413 1600 Result Diagrams: 12/01/19 06:01 12/01/19 06:01 Phys Exam - Physical Examination Constitutional: NAD HEENT: PERRLA, moist MMs scleral icterus Neck: no JVD, supple Respiratory: no wheezing, no rales, no rhonchi, clear to auscultation bilateral Cardiovascular: RRR, no rub Gastrointestinal: soft, no distention, positive bowel sounds slight TTP epigastric Musculoskeletal: no edema, pulses present Neurological: non-focal, moves all 4 limbs Psychiatric: normal affect, A&O x 3 Skin: normal turgor, cap refill <2 seconds Deviation from normal: jaundice appearing skin Dx/Plan (1) DKA (diabetic ketoacidoses) Code(s): E11.10 - TYPE 2 DIABETES MELLITUS WITH KETOACIDOSIS WITHOUT COMA Status: Acute (2) Upper GI bleed Code(s): K92.2 - GASTROINTESTINAL HEMORRHAGE, UNSPECIFIED Status: Acute (3) Macrocytic anemia Code(s): D53.9 - NUTRITIONAL ANEMIA, UNSPECIFIED Status: Acute (4) Cirrhosis of liver Code(s): K74.60 - UNSPECIFIED CIRRHOSIS OF LIVER Status: Acute (5) SIRS (systemic inflammatory response syndrome) Code(s): R65.10 - SIRS OF NON-INFECTIOUS ORIGIN W/O ACUTE ORGAN DYSFUNCTION Status: Acute (6) Lactic acidosis Code(s): E87.2 - ACIDOSIS Status: Acute (7) JUS (acute kidney injury) Code(s): N17.9 - ACUTE KIDNEY FAILURE, UNSPECIFIED Status: Acute (8) Severe protein-calorie malnutrition Code(s): E43 - UNSPECIFIED SEVERE PROTEIN-CALORIE MALNUTRITION Status: Acute - Plan Plan: 49 y/o M admitted to [facility] for insulin drip to treat DKA. 1. DKA, resolved - Admission labs: glu 644, corrected NA 155, K 5.0, Bhb 1.95, Lactic Acid 17, anion gap 32 - Gap closed, glucose treated with 70/30 and SSI. will titrate 70/30 pending SSI requirements. - given 10 units insulin in ED, started on banana bag , and 3 L IVF bolus ordered - insulin drip and DKA protocol overnight11/28-11/29. switched to 70/30 insulin 12 units BID and titrated up this am to 17 units BID based on overnight requirements of SSI and hyperglycemia. 2. SIRs, tachycardia and WBC 22.2, improving - most likely due to being dehydrated and hemconcentrated. - will monitor closely for improvement once adequately resuscitated - paracentesis ruled out SBP. PMN 14, WBC 102, ccx no growth to date. 3. Upper GI bleed - H/H 8.1/26.6 -> 9.1/26.7 - ABG showed hgb 6.7, transfused 1 unit pRBC on 11/29. - Continue protonix bid and octreotide ggt - GI consult Dr. Eduardo, appreciate recommendations -3 [address] CT scan: portal vein thrombosis with developing varices and cavernous transformation of portal vein. Cholelithiasis. -Periodic lasix to avoid volume overload and exacerbate varices. - continue protonix 40 mg bid - monitor H%H and transfuse below 7, given 1 unit pRBC on 11/29, repeat H&H 4 hrs post transfusion 8.0. - upper EGD today. Pt was NPO at midnight. Octreotide to be d/c's after EGD. - paracentesis with PMN 14, WBC 102. No SBP suspected. - afp pending 4. Macrocytic anemia - MCV 105 - ordered iron studies: consistent with anemia of chronic disease, b12 2000 and folate 13.7 5. Decompensated Cirrhosis, from alcohol use - ordered RUQ sonogram: c/w cirrhrosis and possible portal vein thrombosis. f/u study [address] above findings and detailed report in records. - ordered HIV/RPR/Hep B non-reactive, Hep B non-immune and hep C pending. - INR: 1.4 - MELD score: 13, Child-Diaz classification B. - Pt needs Q6 month screening for hepatoma 6. Severe protein malnutrition - Cachetic appearance, could be due to cirrhosis vs untreated DM . - albumin 2.6 - dietary consulted 7. Lactic Acidosis, resolved - most likely due to DKA and hyperchloremic anion gap acidosis - LA 17-> 15-> 1.7, AM LA pending 8. JUS, resolved - Cr 1.3 -> 0.7 - will monitor closely for improvement, most likely from dehydration from dka. 9. Portal Vein Thrombosis - No ACT indicated at this time per GI recs. Code status: full code Diet: NPO overnight for EGD. and then CC after procedure. DVT ppx: SCD's Dispo: stable, medical unit. >48 hx stay inpt. Addendum - Attending - Attending Attestation Date/Time: 12/01/19 2186 I personally evaluated the patient and discussed the management with [Piotr] I agree with the History, Examination, Assessment and Plan documented above with any addition or exceptions noted below. DKA stable and managing cirrhosis and UGI bleed issues
[2019-12-01 06:32] LABS: Band 1 % (5-11); Eosinophils 2 % (0-10); Hemoglobin 9.1 g/dL (14.0-18.0); Hypochromia SLIGHT = 6-15 cells (100X) (0-5/hpf); Lymphocytes 16 % (21-51); MDiff Complete? YES; Mean Corpuscular HGB CONC 33.9 g/dL (32.0-36.0); Mean Corpuscular Hemoglobin 32.9 pg (27.0-31.0); Mean Corpuscular Volume 97.1 fL (78.0-98.0); Mean Platelet Volume 9.2 fL (7.4-10.4); Monocytes 14 % (0-10); Myelocyte 1 % (0-0); Neutrophil 66 % (42-75); Nucleated RBC 4 % (0); Platelet Count 179 thou/uL (130-400); Platelet Morphology Comment Appears Adequate; Polychromasia SLIGHT = 2-3 cells (100X) (0-2/hpf); RBC Distribution Width 14.8 % (11.5-14.5); Red Blood Cell (RBC) Count 2.75 mill/uL (4.70-6.10); White Blood Cell (WBC) Count 19.6 thou/uL (4.8-10.8)
[2019-12-01 06:37] LABS: ALT (SGPT) 66 U/L (8-55); AST (SGOT) 82 U/L (5-34); Albumin 2.6 g/dL (3.5-5.0); Alkaline Phosphatase 215 U/L (40-110); Anion Gap 12 mmol/L (10-20); BUN (Urea Nitrogen) 20 mg/dL (8.9-20.6); Bilirubin, Total 1.2 mg/dL (0.2-1.2); Calc. Creatinine Clearance 75 mL/min (70-130); Calcium 7.9 mg/dL (7.8-10.44); Carbon Dioxide 17 mmol/L (22-29); Chloride 115 mmol/L (98-107); Estimated GFR-MDRD Greater than 90; Globulin 3.1 g/dL (2.4-3.5); Glucose 241 mg/dL (70-105); Protein, Total 5.7 g/dL (6.0-8.3); Sodium 140 mmol/L (136-145)
[2019-12-01] MEDS: HumuLIN 70/30 (300 UNITS/3 ML VIAL) SC SCH ×2 (08:43→22:02)
[2019-12-01] MEDS: Pantoprazole 40 MG VIAL IVP SCH ×2 (08:43→22:02)
[2019-12-01] MEDS ORDERED: PROPOFOL 200 MG/20 ML VIAL ONE (10:41)
--- NOTE | 2019-12-01 13:58 | OP ---
DATE OF PROCEDURE: 12/01/2019 PROCEDURE PERFORMED: Esophagogastroduodenoscopy with band ligation x3. INDICATION FOR PROCEDURE: Hematemesis with history of cirrhosis. DESCRIPTION OF PROCEDURE: After the risks and benefits of the procedure were explained to the patient including risks of bleeding, infection, perforation, reactions to anesthesia, aspiration, and/or pain, informed consent was obtained. The patient was then taken to the endoscopy suite where he was placed in the left lateral decubitus position followed by deep sedation via propofol and anesthesia support. Once adequate sedation was achieved, the standard gastroscope was introduced into the mouth with intubation of the esophagus, stomach, and the proximal small intestines with the findings listed below. The patient tolerated the procedure well with no immediate perioperative complications. Upon conclusion of the procedure, all equipment was removed from the patient and he was transferred to PACU in satisfactory condition. FINDINGS: Esophagus: Normal-appearing mucosa was seen in the proximal esophagus; however, large (grade 2) esophageal varices were seen in the mid and distal esophagus. Upon initial examination, there was no evidence of active bleeding or red silvana signs; however, at approximately 27 cm past the incisors, there was a fibrin clot noted along the anterior portion of the esophagus and overlying a varix, consistent with a possible recent bleeding source. Given this finding, a band ligation device was affixed to the end of the standard gastroscope and band ligation x3 was performed in the distal esophagus and including this region of fibrin clot formation with good hemostasis achieved. Otherwise, there was no evidence of erosions, mass lesions, or active bleeding. Stomach: A mild amount of diffuse mucosal erythema in a mosaic type pattern was seen in the gastric fundus and body only without any other associated abnormalities. Otherwise, normal-appearing mucosa was seen in the gastric cardia, distal greater curvature, antrum, and incisura. There was no evidence of erosions, ulcerations, mass lesions, gastric varices, or active/recent bleeding. Duodenum: Normal-appearing mucosa was seen in both the duodenal bulb and second portion of the duodenum. There was no evidence of erosions, ulcerations, mass lesions, or active/recent bleeding. IMPRESSION: 1. Large (grade 2) esophageal varices seen in the mid and distal esophagus with a fibrin clot seen at 27 cm, now status post band ligation x3. 2. Mild portal hypertensive gastropathy. 3. No evidence of gastric varices. RECOMMENDATIONS: 1. Would continue to trend his hemoglobin and hematocrit and transfuse as necessary to maintain the hemoglobin and hematocrit of 7/21. 2. Continue to monitor clinically for signs of active GI bleeding. 3. If the patient's hemoglobin and hematocrit are stable by tomorrow, could consider discharge to home and follow up in the outpatient GI Clinic. 4. We will continue octreotide drip for total duration of therapy of 72 hours. 5. Would continue the patient on pantoprazole b.i.d., but could theoretically decrease to once daily on discharge. 6. Given the patient's significantly elevated AFP, I would recommend an MRI of the liver for possible hepatocellular carcinoma. We will continue to follow. Please call with any questions. Job ID: [id number]
[2019-12-01] MEDS: HumaLOG 300 UNITS/3 ML VIAL SC PRN (17:30)
[2019-12-02 05:38] LABS: ALT (SGPT) 53 U/L (8-55); AST (SGOT) 56 U/L (5-34); Albumin 2.3 g/dL (3.5-5.0); Alkaline Phosphatase 180 U/L (40-110); Anion Gap 9 mmol/L (10-20); BUN (Urea Nitrogen) 15 mg/dL (8.9-20.6); Band 8 % (5-11); Bilirubin, Total 1.2 mg/dL (0.2-1.2); Calc. Creatinine Clearance 89 mL/min (70-130); Calcium 7.4 mg/dL (7.8-10.44); Carbon Dioxide 20 mmol/L (22-29); Chloride 117 mmol/L (98-107); Eosinophils 1 % (0-10); Estimated GFR-MDRD Greater than 90; Globulin 2.7 g/dL (2.4-3.5); Glucose 184 mg/dL (70-105); Hemoglobin 7.6 g/dL (14.0-18.0); Lymphocytes 32 % (21-51); MDiff Complete? YES; Mean Corpuscular HGB CONC 34.9 g/dL (32.0-36.0); Mean Corpuscular Volume 97.6 fL (78.0-98.0); Mean Platelet Volume 9.1 fL (7.4-10.4); Metamyelocyte 5 % (0-0); Monocytes 10 % (0-10); Myelocyte 1 % (0-0); Neutrophil 43 % (42-75); Nucleated RBC 2 % (0); Platelet Count 121 thou/uL (130-400); Platelet Morphology Comment Appears Adequate; Potassium 3.7 mmol/L (3.5-5.1); RBC Distribution Width 15.4 % (11.5-14.5); Red Blood Cell (RBC) Count 2.24 mill/uL (4.70-6.10); Sodium 142 mmol/L (136-145); White Blood Cell (WBC) Count 9.5 thou/uL (4.8-10.8)
--- NOTE | 2019-12-02 06:38 | PDOC.FM ---
- Subjective Subjective: Pt states that he is doing well this morning. He is hungry. Complains of mild epigastric pain, he's unsure if this is because he is hungry or something else. No N/V/D. - Objective Vital Signs & Weight: Vital Signs (12 hours) Temp Pulse Resp BP Pulse Ox 12/02/19 03:00 98.1 F 81 16 119/73 96 12/01/19 20:20 98.0 F 88 16 138/88 95 12/01/19 20:00 95 Weight Admit Weight 45.359 kg Weight 45.8 kg Most Recent Monitor Data Heart Rate from ECG 99 NIBP 99/48 NIBP BP-Mean 65 Respiration from ECG 0 SpO2 100 I&O: 11/30/19 12/01/19 12/02/19 06:59 06:59 06:59 Intake Total 3738 1600 Output Total 325 Balance 3413 1600 Result Diagrams: 12/02/19 05:01 12/02/19 05:01 Phys Exam - Physical Examination Constitutional: NAD HEENT: moist MMs, sclera anicteric Neck: full ROM Scant scattered wheezes Cardiovascular: RRR, no significant murmur Gastrointestinal: soft, positive bowel sounds Mild epigastric tenderness, no peritoneal signs Neurological: non-focal, moves all 4 limbs Psychiatric: normal affect Dx/Plan (1) Cirrhosis of liver Code(s): K74.60 - UNSPECIFIED CIRRHOSIS OF LIVER Status: Acute (2) Macrocytic anemia Code(s): D53.9 - NUTRITIONAL ANEMIA, UNSPECIFIED Status: Acute (3) Upper GI bleed Code(s): K92.2 - GASTROINTESTINAL HEMORRHAGE, UNSPECIFIED Status: Acute (4) Diabetes mellitus Code(s): E11.9 - TYPE 2 DIABETES MELLITUS WITHOUT COMPLICATIONS Status: Acute - Plan Plan: 49 y/o M admitted to [facility] for insulin drip to treat DKA. Upper GI bleed - Hgb again down to 7.6 this morning - Continue protonix bid - octreotide ggt to be dc'd tonight at 72hr duration (2129) - GI consult Dr. Eduardo, appreciate recommendations - upper EGD yesterday showing Grade II varices - afp > 20,000, Liver MRI pending today - Currently on clear liquid diet as we trend his hgb, if continues to drop will need colonoscopy DM II - DKA, resolved - 70/30 insulin 17 units BID - Received first dose of increased regimen last night, AM glucose 174 - Will monitor mid day levels after morning dose and titrate accordingly Macrocytic anemia - MCV 105 - ordered iron studies: consistent with anemia of chronic disease, b12 2000 and folate 13.7 Decompensated Cirrhosis, from alcohol use - MELD score: 13, Child-Diaz classification B. - Liver MRI today for elevated AFP - Pt needs Q6 month screening for hepatoma Severe protein malnutrition - Cachetic appearance, could be due to cirrhosis vs untreated DM . - albumin 2.6 - dietary consulted Code status: full code Diet: CC DVT ppx: SCD's Dispo: stable, medical unit. >48 hx stay inpt. Addendum - Attending - Attending Attestation Date/Time: 12/02/19 3922 I personally evaluated the patient and discussed the management with Dr. Gillespie. I agree with the History, Examination, Assessment and Plan documented above with any addition or exceptions noted below. Patient stable. Returned from Liver MRI. Blood counts stable. Continue Octreotide. Awaiting further GI recs.
[2019-12-02] MEDS: Octreotide Acetate 1,250 MCG in Sodium Chloride 0.9% 250 ML 250 ML IVPB SCH (09:11)
[2019-12-02 09:20] LABS: Bicarbonate (HCO3v) 13.4 mmol/L (22.0-28.0); Calcium, Ionized 1.26 mmol/L (See Comments:); Chloride 114 mmol/L (98-107); Hemoglobin - Calc 7.8 g/dL (14.0-18.0); Potassium 5.1 mmol/L (3.5-5.1); Sodium 147 mmol/L (138-145); T. Carbon Dioxide 14.7 mmol/L (22.0-28.0); vO2 Saturation-calc 43.9 % (60.0-85.0)
[2019-12-02] MEDS: HumuLIN 70/30 (300 UNITS/3 ML VIAL) SC SCH ×2 (09:21→20:15)
[2019-12-02] MEDS: Pantoprazole 40 MG VIAL IVP SCH ×2 (09:48→20:20)
--- NOTE | 2019-12-02 11:20 | PRG ---
DATE OF SERVICE: 12/02/2019 REASON FOR CONSULTATION: Cirrhosis and hematemesis secondary to esophageal varices. SUBJECTIVE: Overnight, the patient did not have any problems or events. He did go down for MRI this morning and had just returned at the time of this evaluation. However, shortly after arriving back to his room, he did have a smaller volume black-colored stool and is now complaining of increased generalized abdominal pain. Otherwise, he denies any nausea, vomiting, fevers, chills, hematochezia, or hematemesis. OBJECTIVE: VITAL SIGNS: Temperature 98.2, pulse 78, blood pressure 116/70, respiratory rate 16, saturating 96% on room air. GENERAL: The patient was lying in bed, in no acute distress. Alert and oriented x4 Khmer-speaking only. CARDIOVASCULAR: Regular rate and rhythm. RESPIRATORY: Clear to auscultation bilaterally. ABDOMEN: Normoactive bowel sounds. Soft. Mild abdominal distention. Mild tenderness to palpation in all abdominal quadrants. EXTREMITIES: No cyanosis, clubbing, or edema. LABORATORY DATA: CBC with a white blood cell count of 9.5, hemoglobin 7.6, hematocrit 21.9, platelets 121. Chemistry with a sodium of 142, potassium 3.7, chloride 117, CO2 of 20, BUN 15, creatinine 0.64, glucose 184. AST 56, ALT 53, alkaline phosphatase 180, total bilirubin 1.2. IMAGING DATA: MRI still pending at this time. ASSESSMENT AND PLAN: The patient is a 49-year-old male with past medical history of diabetes, chronic anemia, hyperlipidemia, and cirrhosis, presenting with diabetic ketoacidosis and decompensated cirrhosis with esophageal varices and elevated AFP. Hematemesis: Prior to admission, the patient had approximately two episodes of hematemesis characterized as dark black colored emesis but had not had any further recurrences during this hospitalization. He subsequently underwent upper endoscopy on December 02, 2019, which showed the presence of large (grade 2) esophageal varices seen in the distal esophagus, one of which had an overlying fibrin clot indicative of a high-risk stigmata bleeding. These esophageal varices were ultimately intervened upon with band ligation with no bleeding noted at the end of the maneuver. However, today the patient does have some mild abdominal pain in addition to having a recent black colored stool concerning for the possibility of bleeding within the upper GI tract (although it is unclear if this is due to intervention yesterday). RECOMMENDATIONS: 1. We would continue to trend his H and H and transfuse as necessary to maintain an H and H of 7/. 2. Continue to monitor clinically for signs of active GI bleeding. 3. Continue patient on pantoprazole 40 mg IV b.i.d. 4. We will continue patient on octreotide drip until total duration of therapy of 72 hours has . 5. Would avoid any anticoagulation for the time being in light of possible GI bleeding postprocedure. Cirrhosis: The patient is presenting with a history of cirrhosis based on thrombocytopenia, cirrhotic morphology and splenomegaly on imaging and esophageal varices on the upper endoscopy. At this time, the most likely etiology for his cirrhosis would be chronic alcohol abuse. Currently, presenting with decompensated disease with a MELD score of 13 and Child-Diaz classification B. CT scan of the abdomen and pelvis was obtained on November 29, 2019, which did not show any evidence of hepatoma. However, testing with alpha fetoprotein was noted to be over 20,000 concerning for the presence of underlying malignancy. MRI was obtained on December 02, 2019, with results still pending at this time. RECOMMENDATIONS: 1. We will follow up on the MRI results and if the patient does indeed have evidence of hepatocellular carcinoma, I would recommend transfer the patient to [place] for evaluation at the Liver Clinic either as an inpatient or outpatient. 2. Anticoagulation is not indicated at this time given the probable chronic portal vein thrombosis. We will continue to follow. Please call with any questions. Job ID: [id number]
--- NOTE | 2019-12-02 11:53 | MRI ---
MRI ABDOMEN WITH AND WITHOUT IV CONTRAST: Date: 12/02/2019 HISTORY: Cirrhosis. AFP of 20,000. Generalized abdominal pain. FINDINGS: Correlation is made with the CT scan of 11/29/2019. There is mildly increased T2 signal involving a majority portion of the right lobe of the liver (segm ents 7 and 8) with extension into the right and left, as well as the main portal veins. This is highl y suspicious for infiltrating hepatocellular carcinoma. There is suggestion of a small hemangioma in segment 8 of the right lobe of the liver. There are multiple gallstones in the neck of the gallbladde r. The spleen, pancreas, adrenal glands, and kidneys are unremarkable. There is free fluid in the abd omen consistent with ascites. The bone marrow signal is normal. No lymphadenopathy is seen. There are bilateral pleural effusions. IMPRESSION: 1. Findings are highly suspicious for infiltrating hepatocellular carcinoma in the right lobe of the liver with extension into the portal veins. 2. Cholelithiasis. 3. Ascites. 4. Bilateral pleural effusions. POS: [facility]
[2019-12-02] MEDS: HumaLOG 300 UNITS/3 ML VIAL SC PRN (11:55)
[2019-12-02] MEDS: Sodium Chloride 0.9% 1,000 ML IV SCH (12:58)
[2019-12-02 14:20] LABS: Hemoglobin 8.2 g/dL (14.0-18.0)
[2019-12-02] MEDS ORDERED: Magnevist 469MG/ML 20 ML VIAL ONE (15:22)
[2019-12-02] MEDS: Ondansetron ODT 4 MG TAB PO PRN (20:15)
[2019-12-03 05:40] LABS: #Basophils 0.1 thou/uL (0.0-0.2); #Eosinphils 0.3 thou/uL (0.0-0.7); #Lymphocytes 2.1 thou/uL (1.20-3.40); #Monocytes 0.6 thou/uL (0.11-0.59); #Neutrophils 4.9 thou/uL (1.40-6.50); %Basophils 0.6 % (0.0-1.0); %Eosinophils 3.8 % (0.0-10.0); %Lymphocytes 26.5 % (21.0-51.0); Hemoglobin 8.1 g/dL (14.0-18.0); Mean Corpuscular HGB CONC 33.7 g/dL (32.0-36.0); Mean Corpuscular Hemoglobin 33.6 pg (27.0-31.0); Mean Corpuscular Volume 99.5 fL (78.0-98.0); Mean Platelet Volume 9.3 fL (7.4-10.4); Platelet Count 111 thou/uL (130-400)
[2019-12-03 05:58] LABS: ALT (SGPT) 48 U/L (8-55); AST (SGOT) 60 U/L (5-34); Albumin 2.3 g/dL (3.5-5.0); Alkaline Phosphatase 182 U/L (40-110); Anion Gap 10 mmol/L (10-20); BUN (Urea Nitrogen) 11 mg/dL (8.9-20.6); Bilirubin, Total 1.5 mg/dL (0.2-1.2); Calc. Creatinine Clearance 91 mL/min (70-130); Calcium 7.3 mg/dL (7.8-10.44); Carbon Dioxide 21 mmol/L (22-29); Chloride 115 mmol/L (98-107); Estimated GFR-MDRD Greater than 90; Globulin 2.8 g/dL (2.4-3.5); Glucose 108 mg/dL (70-105); Potassium 3.5 mmol/L (3.5-5.1); Protein, Total 5.1 g/dL (6.0-8.3); Sodium 142 mmol/L (136-145)
--- NOTE | 2019-12-03 07:02 | PDOC.FM ---
- Subjective Subjective: He says he is eating and sleeping well. He complains of epigastric pain. He says it is currently not that bad but it is a constant sharp pain. - Objective MAR Reviewed: Yes Vital Signs & Weight: Vital Signs (12 hours) Temp Pulse Resp BP Pulse Ox 12/02/19 20:00 96 12/02/19 19:00 97.7 F 84 16 123/76 96 Weight Admit Weight 45.359 kg Weight 45.8 kg Most Recent Monitor Data Heart Rate from ECG 99 NIBP 99/48 NIBP BP-Mean 65 Respiration from ECG 0 SpO2 100 I&O: 12/01/19 12/02/19 12/03/19 06:59 06:59 06:59 Intake Total 1600 805 Balance 1600 805 Result Diagrams: 12/03/19 05:04 12/03/19 05:04 Phys Exam - Physical Examination Constitutional: NAD HEENT: PERRLA, moist MMs Poor dentition Neck: no nodes, supple Respiratory: no wheezing, no rales, no rhonchi, clear to auscultation bilateral Cardiovascular: RRR, no significant murmur, no rub Gastrointestinal: soft, positive bowel sounds TTP in the epigastric region Musculoskeletal: no edema, pulses present Neurological: moves all 4 limbs Lymphatic: no nodes Psychiatric: normal affect Skin: no rash, normal turgor Dx/Plan (1) Cirrhosis of liver Code(s): K74.60 - UNSPECIFIED CIRRHOSIS OF LIVER Status: Acute (2) DKA (diabetic ketoacidoses) Code(s): E11.10 - TYPE 2 DIABETES MELLITUS WITH KETOACIDOSIS WITHOUT COMA Status: Acute (3) Diabetes mellitus Code(s): E11.9 - TYPE 2 DIABETES MELLITUS WITHOUT COMPLICATIONS Status: Acute (4) Macrocytic anemia Code(s): D53.9 - NUTRITIONAL ANEMIA, UNSPECIFIED Status: Acute (5) Severe protein-calorie malnutrition Code(s): E43 - UNSPECIFIED SEVERE PROTEIN-CALORIE MALNUTRITION Status: Acute (6) Upper GI bleed Code(s): K92.2 - GASTROINTESTINAL HEMORRHAGE, UNSPECIFIED Status: Acute - Plan Plan: 49 y/o M admitted to [facility] for insulin drip to treat DKA. 1. Upper GI bleed Hgb: 8.1 this morning * Continue protonix bid * Octreotide ggt 72H completed last night * GI consulted, Dr. Eduardo, appreciate recommendations * Upper EGD 11/30 showing Grade II varices * AFP > 20,000 * Liver MRI: Hepatocellular carcinoma of the right lobe liver with extension of portal veins, cholelithiasis, ascites, bilateral pulmonary effusions * Recommend transfer to [place] to be followed at the liver clinic * Currently on clear liquid diet as we trend his hgb, if continues to drop will need colonoscopy 2. DM II - DKA, resolved 70/30 insulin 17 units BID * Received first dose of increased regimen on 11/30 night, AM glucose 174 * Will monitor and titrate accordingly 3. Macrocytic anemia MCV 105 * Iron studies: consistent with anemia of chronic disease, b12 2000 and folate 13.7 4. Decompensated Cirrhosis, from alcohol use MELD score: 13, Child-Diaz classification B. * Liver MRI noted above * Pt needs Q6 month screening for hepatoma 5. Severe protein malnutrition Cachetic appearance, could be due to cirrhosis vs untreated DM . * Albumin 2.6 * Dietary consulted Code status: full code Diet: CC DVT ppx: SCD's PCP: CC- No PCP Dispo: Med inpt, LOS >48H. Consider transfer to [place] today according to GI recs. Addendum - Attending - Attending Attestation Date/Time: 12/03/19 0931 I personally evaluated the patient and discussed the management with Dr. Colby I agree with the History, Examination, Assessment and Plan documented above with any addition or exceptions noted below. GI to consult Onc. Will add palliative consult to care to discuss goals of care. Dispo pending Onc recs.
[2019-12-03] MEDS: HumuLIN 70/30 (300 UNITS/3 ML VIAL) SC SCH ×2 (08:26→21:52)
[2019-12-03] MEDS: Pantoprazole 40 MG VIAL IVP SCH ×2 (08:26→21:50)
--- NOTE | 2019-12-03 11:05 | PRG ---
DATE OF SERVICE: 12/03/2019 REASON FOR CONSULTATION: Cirrhosis, hematemesis secondary to esophageal varices, hepatocellular carcinoma. SUBJECTIVE: Overnight, the patient does not endorse any additional problems or events. He did have one small black-colored bowel movement yesterday, but has since not had any further bowel movements nor any melenic type stools. He denies any nausea, vomiting, fevers, chills, hematemesis, hematochezia, or melena at this time. He does have some mild generalized abdominal pain, but otherwise is feeling well. I had a long discussion both with the patient and his fiancee about his current clinical situation including the infiltrating hepatocellular carcinoma in the right portion of his liver. I outlined that at this time given the size of his tumor that liver transplant and surgical resection are probably not options for him. Radiation or chemotherapy may be an option (although radiation is probably out of the question as well), but may not be available here in [facility]. They expressed understanding after an extensive conversation, where both the patient and his fiancee were able to ask questions. OBJECTIVE: VITAL SIGNS: Temperature 98.5, pulse 84, blood pressure 126/81, respiratory rate 16, saturating 96% on room air. GENERAL: The patient was lying in bed, in no acute distress. Alert and oriented x4. Bulgarian-speaking only. CARDIOVASCULAR: Regular rate and rhythm. RESPIRATORY: Clear to auscultation bilaterally. ABDOMEN: Normoactive bowel sounds. Soft. Mild abdominal distention. Mild tenderness to palpation in all abdominal quadrants. EXTREMITIES: No cyanosis, clubbing, or edema. LABORATORY DATA: CBC with a white blood cell count of 8, hemoglobin 8.1, hematocrit 23.9, platelets 111. Chemistry with a sodium of 142, potassium 3.5, chloride 115, CO2 of 21, BUN 11, creatinine 0.63, glucose 108. AST 60, ALT 48, alkaline phosphatase 182, total bilirubin 1.5, albumin 2.3. IMAGING DATA: Multiphasic MRI was obtained on 12/02/2019, which showed mildly increased T2 signal involving the majority of the right lobe of the liver with extension into the right, left, and main portal veins, highly suspicious for infiltrating hepatocellular carcinoma. There was a suggestion of a small hemangioma in segment 8 of the right lobe of the liver. Multiple gallstones were seen in the neck of the gallbladder, but no evidence of cholecystitis. There is free fluid in the abdomen consistent with ascites as well as incidental finding of bilateral pleural effusions. ASSESSMENT AND PLAN: The patient is a 49-year-old male with past medical history of diabetes, chronic anemia, hyperlipidemia, and cirrhosis complicated by esophageal varices, ascites, and now hepatocellular carcinoma. 1. Esophageal varices/hematemesis: Prior to admission, the patient had approximately 2 episodes of hematemesis characterized as dark black colored emesis with no further episodes during this hospitalization. EGD performed on 12/02/2019, showed the presence of large (grade 2) esophageal varices in the distal esophagus, one of which had an overlying fibrin clot indicative of recent bleeding. The esophageal varices were ultimately intervened upon with band ligation x3 with no bleeding at the end of the maneuver. However, he did have approximately one black stool after the procedure, but has not had any further episodes since. His H and H have also been stable over the last 24 to 48 hours as well making the likelihood of active GI bleeding unlikely. Recommendations: 2. a. Would continue to trend his H and H and transfuse as necessary to maintain an H and H of 7/21. b. Continue to monitor clinically for signs of active GI bleeding. c. Continue pantoprazole 40 mg IV b.i.d. d. We would discontinue octreotide drip given that has been administered for 72 hours. e. Avoid any anticoagulation in light of recent GI bleed. 3. Ascites: The patient is presenting with mild abdominal distention with the appearance of ascites on imaging. He underwent paracentesis on 11/30/2019, which yielded a small amount of clear colored fluid with fluid analysis negative for spontaneous bacterial peritonitis. At this time, he does have some reaccumulation of fluid within his belly, which may be amenable to only a slow sodium diet, but may need diuretic therapy in the future recommendations. Recommendations: a. Would place the patient on a low-sodium, high-protein diet in light of ascites with cirrhosis. b. The patient may need diuretic management for formation of ascites. In which case, I would suggest placing him on spironolactone 50 mg daily to start, but only if developing significant ascites on a low-sodium diet. 4. Hepatocellular carcinoma: The patient is presenting with a mild elevation in his LFTs and total bilirubin with negative viral hepatitis studies obtained thus far. However, during the course of this admission, he did have an alpha fetoprotein that was significantly elevated at approximately 20,000. Right upper quadrant ultrasound performed on 11/29/2019, was negative for hepatoma in addition to an abdominal CT on 11/29/2019, which was also negative for hepatoma. However, given his significantly elevated AFP, an MRI was obtained on 12/02/2019, which showed the presence of a large infiltrating hepatocellular carcinoma within the right lobe of the liver measuring approximately 13 cm in size. At this point, it seems to be extending toward both the left, right, and main portal veins which could be contributing to the portal vein thrombosis seen in that region. Normally with malignant portal vein thrombosis, anticoagulation is indicated. However, given his recent episode of gastrointestinal bleeding and fiber clot on esophageal varices, anticoagulation is ill-advised at this time. The likelihood of collateral circulation however is high, so anticoagulation may not be needed for some time yet. Recommendations: a. We will consult Oncology Service for further recommendations regarding treatment of a large hepatocellular carcinoma. b. If deemed appropriate by Oncology Service the patient may need to be transferred to [place] to the [facility] for further evaluation and treatment (however given the current state of his HCC, liver transplantation and surgical resection are no longer options). c. Would avoid anticoagulation at least for the time being, but may consider in the future given the portal vein thrombosis. We will continue to follow peripherally at this time. Please call with any additional questions. Job ID: [id number]
[2019-12-03] MEDS: HumaLOG 300 UNITS/3 ML VIAL SC PRN (11:39)
--- NOTE | 2019-12-03 17:20 | CON ---
DATE OF CONSULTATION: REASON FOR CONSULT: Hepatoma. HISTORY OF PRESENT ILLNESS: Mr. Gonzales is a 49-year-old Citizen Of [place]-speaking gentleman with past medical history of diabetes, hyperlipidemia, alcoholic cirrhosis, who presented to the emergency room with lethargy and hemoptysis. He had a white count of 22.2 and hemoglobin of 8.1 on arrival. His blood sugar was 644. He was admitted for diabetes ketoacidosis. GI was consulted for his hemoptysis and cirrhosis. He underwent EGD and was noted to have esophageal varices, which were banded. He had mild portal hypertensive gastropathy. An AFP was checked and it was greater than 20,000, so he underwent imaging of his liver. The MRI showed a large infiltrating carcinoma of the right lobe with extension into the portal veins. There was noted ascites and bilateral pleural effusions. The patient has a history of untreated alcoholic cirrhosis over the past 5 years. He has also had poorly-controlled diabetes. There appears to be no evidence of metastatic disease. We were asked to give our opinion regarding possible treatments. PAST MEDICAL HISTORY: 1. Alcoholic cirrhosis. 2. Esophageal varices status post banding. 3. Portal vein thrombosis. 4. Diabetes mellitus 2. PAST SURGICAL HISTORY: None. ALLERGIES: NO KNOWN DRUG ALLERGIES. HOME MEDICATIONS: None. FAMILY HISTORY: No history of GI malignancy. SOCIAL HISTORY: Single, lives with his girlfriend, works at the [employer]. No alcohol use over the past 5 years. Smokes about a half a pack a day. No illicit drug use. REVIEW OF SYSTEMS: Positive for mild abdominal discomfort. Otherwise, negative. PHYSICAL EXAMINATION: VITAL SIGNS: Temperature is 98.5, pulse is 84, respiratory rate is 16, and BP is 126/81. He is 96% on room air. GENERAL: This is a well-developed, well-nourished male, in no acute distress. HEENT: Normocephalic and atraumatic. Pupils are equal and reactive to light. He has poor dentition with rotten teeth. NECK: Supple. CV: Regular rate and rhythm. LUNGS: Clear. ABDOMEN: Mildly distended. He has some tender to palpation with mild splenomegaly. EXTREMITIES: No clubbing or cyanosis. SKIN: No rash. HEMATOLOGICAL: No petechiae or purpura. NEUROLOGICAL: Nonfocal. PERTINENT LABS AND X-RAYS: Current WBCs are 22.9, hemoglobin 8, hematocrit 24.2, platelet count is 132,000. He has 76% neutrophils, 4% bands, and 8% lymphocytes. PT is 14.5 and INR is 1.1. Sodium is 142, potassium 3.5, chloride 115, CO2 is 21, BUN is 11, creatinine 0.63, and calcium 7.3. Bilirubin 1.5, AST 60, ALT 48, and alk phos 182. Serum total protein 5.1, albumin 2.3, globulin 2.8. AFP is greater than 20,000. B12 and folate are normal. ASSESSMENT: 1. New hepatocellular carcinoma. 2. Alcoholic cirrhosis. 3. Esophageal varices status post banding. 4. Chronic anemia. 5. Diabetic ketoacidosis, now resolved. DISCUSSION: The case has been discussed with Dr. Grayson and Dr. Eduardo. The patient appears to have hepatocellular carcinoma in his right lobe of his liver. It does not appear to be metastatic. I do not believe he is a surgical candidate; however, I do think that he should be referred to a liver center for evaluation by a liver specialist. He may be a candidate for a TACE or possible ablation. Regardless, he needs an opinion from a specialist. If no treatment will be done by then, he will come and see us in our clinic and we can discuss chemotherapy further. This was discussed at length with the patient. I spent over 60 minutes with the patient, 50% of that time spent with counseling and using [employer] for interpretation. The patient can be discharged any time as this will be done in the outpatient setting. Thank you for the consult. Job ID: [id number]
[2019-12-04 05:18] LABS: #Eosinphils 0.4 thou/uL (0.0-0.7); #Lymphocytes 2.3 thou/uL (1.20-3.40); #Neutrophils 4.4 thou/uL (1.40-6.50); %Basophils 0.2 % (0.0-1.0); %Eosinophils 5.2 % (0.0-10.0); %Monocytes 12.8 % (0.0-10.0); %Neutrophils 53.7 % (42.0-75.0); Hemoglobin 8.3 g/dL (14.0-18.0); Mean Corpuscular HGB CONC 33.4 g/dL (32.0-36.0); Mean Corpuscular Hemoglobin 33.2 pg (27.0-31.0); Mean Corpuscular Volume 99.4 fL (78.0-98.0); Platelet Count 133 thou/uL (130-400); RBC Distribution Width 16.7 % (11.5-14.5); Red Blood Cell (RBC) Count 2.49 mill/uL (4.70-6.10); White Blood Cell (WBC) Count 8.1 thou/uL (4.8-10.8)
[2019-12-04 05:37] LABS: ALT (SGPT) 41 U/L (8-55); AST (SGOT) 51 U/L (5-34); Albumin 2.3 g/dL (3.5-5.0); Alkaline Phosphatase 182 U/L (40-110); Anion Gap 8 mmol/L (10-20); BUN (Urea Nitrogen) 10 mg/dL (8.9-20.6); Bilirubin, Total 1.5 mg/dL (0.2-1.2); Calc. Creatinine Clearance 92 mL/min (70-130); Calcium 7.4 mg/dL (7.8-10.44); Carbon Dioxide 23 mmol/L (22-29); Chloride 112 mmol/L (98-107); Estimated GFR-MDRD Greater than 90; Globulin 2.8 g/dL (2.4-3.5); Potassium 3.3 mmol/L (3.5-5.1); Protein, Total 5.1 g/dL (6.0-8.3); Sodium 140 mmol/L (136-145)
[2019-12-04 05:40] LABS: Glucose 53 mg/dL (70-105)
--- NOTE | 2019-12-04 06:57 | PDOC.FM ---
- Subjective Subjective: He is doing well this morning. He denies any pain. He is eating well and drinking well. - Objective MAR Reviewed: Yes Vital Signs & Weight: Vital Signs (12 hours) Temp Pulse Resp BP Pulse Ox 12/03/19 20:00 95 12/03/19 19:17 98.4 F 84 20 158/91 H 92 L Weight Admit Weight 45.359 kg Weight 45.8 kg Most Recent Monitor Data Heart Rate from ECG 99 NIBP 99/48 NIBP BP-Mean 65 Respiration from ECG 0 SpO2 100 I&O: 12/02/19 12/03/19 12/04/19 06:59 06:59 06:59 Intake Total 805 1430 Balance 805 1430 Result Diagrams: 12/04/19 04:54 12/04/19 04:54 Phys Exam - Physical Examination Constitutional: NAD HEENT: PERRLA, sclera anicteric Neck: supple, full ROM Respiratory: no wheezing, no rales, no rhonchi, clear to auscultation bilateral Cardiovascular: RRR, no significant murmur, no rub Gastrointestinal: soft, non-tender, positive bowel sounds Musculoskeletal: no edema, pulses present Neurological: moves all 4 limbs Lymphatic: no nodes Psychiatric: normal affect Skin: no rash, normal turgor Dx/Plan (1) Cirrhosis of liver Code(s): K74.60 - UNSPECIFIED CIRRHOSIS OF LIVER Status: Acute (2) DKA (diabetic ketoacidoses) Code(s): E11.10 - TYPE 2 DIABETES MELLITUS WITH KETOACIDOSIS WITHOUT COMA Status: Acute (3) Diabetes mellitus Code(s): E11.9 - TYPE 2 DIABETES MELLITUS WITHOUT COMPLICATIONS Status: Acute (4) Macrocytic anemia Code(s): D53.9 - NUTRITIONAL ANEMIA, UNSPECIFIED Status: Acute (5) Severe protein-calorie malnutrition Code(s): E43 - UNSPECIFIED SEVERE PROTEIN-CALORIE MALNUTRITION Status: Acute (6) Upper GI bleed Code(s): K92.2 - GASTROINTESTINAL HEMORRHAGE, UNSPECIFIED Status: Acute - Plan Plan: 49 y/o M admitted to [facility] for insulin drip to treat DKA. 1. Upper GI bleed Hgb: 8.3 this morning * Continue protonix bid * Octreotide ggt 72H completed last night * GI consulted, Dr. Eduardo, appreciate recommendations * Upper EGD 11/30 showing Grade II varices * AFP > 20,000 * Liver MRI: Hepatocellular carcinoma of the right lobe liver with extension of portal veins, cholelithiasis, ascites, bilateral pulmonary effusions * Recommend transfer to [place] to be followed at the liver clinic * Currently on clear liquid diet as we trend his hgb, if continues to drop will need colonoscopy 2. DM II - DKA, resolved 70/30 insulin 17 units BID instead of 20 * Received first dose of increased regimen on 11/30 night, AM glucose 174 * Will monitor and titrate accordingly 3. Macrocytic anemia MCV 99.4 * Iron studies: consistent with anemia of chronic disease, b12 2000 and folate 13.7 4. Decompensated Cirrhosis, from alcohol use MELD score: 13, Child-Diaz classification B. * Liver MRI noted above * Pt needs Q6 month screening for hepatoma 5. Severe protein malnutrition Cachetic appearance, could be due to cirrhosis vs untreated DM . * Albumin 2.3 * Dietary consulted Code status: full code Diet: CC DVT ppx: SCD's PCP: CC- No PCP Dispo: Med inpt, LOS >48H. We will discharge him home today with follow up in our clinic and with Dr. Eduardo in 2-[address] Eduardo is placing a referral to the [facility] in [place] today and will continue to follow up with him. Addendum - Attending - Attending Attestation Date/Time: 12/04/19 1017 I personally evaluated the patient and discussed the management with Dr. Colby I agree with the History, Examination, Assessment and Plan documented above with any addition or exceptions noted below. Complains of abdominal pain this afternoon when eating and states distention worsens with food. Normal BM yesterday afternoon. Mild gastropathy on EGD. Will give tramadol and GI cocktail to see if sx improve. KUB unremarkable. If no improvement will contact GI for recommendations. if improved, d/c home with carafate and protonix.
[2019-12-04] MEDS ORDERED: Potassium Chloride 20 MEQ TAB PO SCH (07:30)
[2019-12-04] MEDS: Pantoprazole 40 MG VIAL IVP SCH (08:02)
[2019-12-04 08:04] VITALS: BP 116/77; TEMP 98.1
[2019-12-04] MEDS ORDERED: HumuLIN 70/30 (300 UNITS/3 ML VIAL) SC SCH (09:00)
[2019-12-04] MEDS: Ondansetron ODT 4 MG TAB PO PRN (11:38)
[2019-12-04] MEDS ORDERED: Lidocaine 2% Viscous Solution 10 ML, Aluminum & Magnesium Hydroxide 30 ML SSW SCH (13:30)
--- NOTE | 2019-12-04 13:47 | RAD ---
ABDOMEN 1 VIEW: Date: 12/04/2019 HISTORY: Abdominal pain and distention. FINDINGS/IMPRESSION: The bowel gas pattern is unremarkable. No suspicious calcifications are seen. There are mild degenera tive changes in the spine. POS: [facility]
[2019-12-04] MEDS ORDERED: traMADol HCl 50 MG TAB PO SCH (15:00)
--- NOTE | 2019-12-05 11:34 | DIS ---
DATE OF ADMISSION: 11/29/2019 DATE OF DISCHARGE: 12/04/2019 RESIDENT: Jt Colby MD ADMITTING ATTENDING: Leighton Gilliam MD DISCHARGE ATTENDING: Damián Rebollar MD CONSULT: Dr. Eduardo on 11/29/2019 for esophageal varices. 1. The patient had two episodes of hematemesis prior to admission as well as dark black color stools. EGD on 12/01 showed grade 2 esophageal varices and distal esophagus with overlying fibrin clot, varices were ultimately intervened upon with band ligation x3. Hemostasis was achieved. H and H stable, so no active GI bleed. Trend H and H. Transfuse as necessary. Continue Protonix 40 mg IV b.i.d. and discharge on p.o. medication. Discontinue octreotide after 72 hours. Avoid anticoagulation. 2. Ascites, presenting with mild abdominal distention, underwent paracentesis on 11/29 with small clear color fluid, negative for SBP. No reaccumulation currently. Mayneed a low-sodium diet and diuretic therapy. Discharge on low-sodium diet with high-protein diet. Need diuretic management for ascites, 3. Hepatocellular carcinoma, mild elevation of LFTs, and total bilirubin. Negative for viral hepatitis. Alpha fetoprotein was 20,000. Right upper quadrant ultrasound on 11/28, negative for hepatoma. Abdominal CT on , negative for hepatoma. Given his history of elevated AFP, MRI on 12/01 showed large infiltrating hepatocellular carcinoma within the right lobe of the liver, 13 cm in size extending to both left and right and main portal veins contributing to portal vein thrombosis, usually treated with anticoagulation, but due to bleeding, ill-advised, Oncology was consulted, but recommend following up down in [place], will be referred to [facility] by Dr. Eduardo. Follow up with Dr. Eduardo in 3 weeks. Avoid anticoagulation. Oncology on 12/02, case discussed with Dr. Grayson. The patient has hepatocellular carcinoma of the right lobe of the liver that does not seem to be metastatic. He is likely not a surgical candidate, but needs [facility] be [facility] by liver specialist, may be a candidate for TACE or possible ablation regardless needs opinion from specialists. We did discuss chemotherapy. If no treatment, can come to Oncology here in [facility] to discuss chemo. Discussed at length with the patient. PROCEDURES: 1. Chest x-ray on 11/29/2019, no acute process. 2. Abdominal ultrasound on 11/29/2019 shows ascites, echogenic liver due to hepatic steatosis or hepatocellular disease, limited evaluation from hepatic mass, three debris and stones within the gallbladder. Gallbladder wall thickened and evidence of free fluid in gallbladder fossa due to ascites, likely negative Oswald sign. 3. HIDA scan is a concern for cholecystitis, possibly thrombosed portal vein. Abdomen and pelvis CT recommended. 4. Abdomen CT on 11/28 showed portal vein thrombosis with developing varices and cavernous transformation of the portal vein and cholelithiasis. 5. Paracentesis on 11/30/2019, as noted above. 6. On 11/30, EGD with banding of varices as noted above. Grade 2 esophageal varices with ligation x3 and fibrin clot seen at 27 cm. Mild portal hypertensive gastropathy. No evidence of gastric varices. 7. Abdominal MRI on 12/01 shows: 1. Findings highly suspicious for an infiltrating hepatocellular carcinoma in the right lobe of the liver with extension into the portal vein. 2. Cholelithiasis. 3. Ascites. 4. Bilateral pleural effusions. 8. Abdominal x-ray on 12/03, no suspicious calcifications. Mild degenerative changes in the spine. Bowel gas pattern unremarkable. PRIMARY DIAGNOSES: Upper gastrointestinal bleed and hepatocellular carcinoma. Diabetic ketoacidosis and type 2 diabetic, resolved. Macrocytic anemia. 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 SECONDARY DIAGNOSIS: None. DISCHARGE MEDICATIONS: 1. Humulin 70/30 of 17 units b.i.d. 2. Protonix 20 mg p.o. b.i.d. for 30 days. 3. Sucralfate 1 g p.o. b.i.d. 4. Tramadol 50 mg q.6 hours p.r.n. for abdominal pain. 5. Glucometer with test strips and glucagon pen. DISCONTINUED MEDICATIONS: 1. D5W. 2. Zofran. 3. Potassium chloride. 4. Magnesium oxide. 5. Magnesium sulfate. 6. Fosamax. 7. Octreotide. 8. Flu vaccine and Pneumonia 23 vaccine, both given on November 30, 2019. HISTORY OF PRESENT ILLNESS: The patient is a 49-year-old [place]-speaking male with past medical history of diabetes type 2 and cirrhosis off all medications for the past four years and is seeing no physician during that time prior to visit to the ER by EMS. The patient's history is obtained via copy supervisor, patient is a poor historian and does not endorse any complaints. Much of his history was obtained by vish at bedside. Per vish, he had an episode of chest pain and left arm numbness and hematemesis on Monday night. The patient denied complaints and denies himself this morning noticed by roommate to need help as the patient was lethargic and unable to keep balance, the patient slipped and fell in the bathroom. Vish was called and called 911. Per ambulance, picked up patient from house and brought to the ED. The patient denies any pain and no further chest pain. Complaints of recent 8 pounds weight loss, increased urination and thirst. The patient was admitted approximately five years ago for similar presentation. At that time, diagnosed with diabetes type 2 and cirrhosis, who was discharged on non-insulin for about one year, but since he has been off and has not seen physician. In the ED, he is given 5 units of insulin, vancomycin, and cefepime. GivenProtonix, 1 L normal saline, and 2 L of lactated Ringer's. 1. Upper GI bleed. Hemoglobin stable at 8.3 this morning. * Discharged with Protonix b.i.d. * octreotide discontinued after 72 hours per GI recommendations of Dr. Eduardo as noted above. 2. Diabetes type 2. DKA resolved. * 70/30 insulin 17 units b.i.d. down from 20 due to hypoglycemic event. 3. Macrocytic anemia. MCV 99.4. * Iron studies consistent with anemia of chronic disease. * B12 and folate within normal limits. 4. 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 MELD score of 13. Child Diaz classification B. * Liver MRI as above. 5. Hepatocellular carcinoma. MRI notes 13 cm mass as above. * Referral placed by Dr. Eduardo for [facility] in [place]. * He should follow up with Dr. Eduardo in 2 to 3 weeks, and should follow up with [facility] in 7 days. 6. Severe protein malnutrition, cachectic due to cirrhosis versus untreated albumin 2.3 * Dietitian consulted and recommended Ensures to supplement. DISPOSITION: Stable. DISCHARGE INSTRUCTIONS: 1. Location: Home. 2. Activity: As tolerated. 3. Diet: Diabetic diet, high in protein with low-sodium. Recommend supplementing with Ensures. 4. Follow up with Dr. Andriy Gillespie on 12/06/[address] Luis Alberto Eduardo in 2 to 3 weeks. [facility] should call to establish appointment with the patient. 5. Recommend repeat glucose check at office visit and the patient was setup for emergency Medicaid, but will take a while to be established. Case Management was coordinating free prescriptions for patient's which he will likely receive on 12/05/2019. Job ID: [id number] SANTANA
== END 2019-12-04 18:19 | disposition home or self-care (01) | DRG 432 ==
LOC: ERS 10:02 → EDSEX 10:02 → IMCU/EMU 12:23 → T4-A 13:41
PROVIDERS: ADMIT Family Medicine; ATTEND Family Medicine
PROC: 0W9G3ZZ Drainage of Peritoneal Cavity, Percutaneous Approach (ICD-10-PCS; 2019-11-30)
PROC: BW40ZZZ Ultrasonography of Abdomen (ICD-10-PCS; 2019-11-30)
PROC: 30233N1 Transfusion of Nonautologous Red Blood Cells into Peripheral Vein, Percutaneous Approach (ICD-10-PCS; 2019-11-30)
PROC: 06L38CZ Occlusion of Esophageal Vein with Extraluminal Device, Via Natural or Artificial Opening Endoscopic (ICD-10-PCS; principal; 2019-12-01)
DX: K70.31 Alcoholic cirrhosis of liver with ascites (principal); E11.10 Type 2 diabetes mellitus with ketoacidosis without coma; E43 Unspecified severe protein-calorie malnutrition; I81 Portal vein thrombosis; I85.11 Secondary esophageal varices with bleeding; C22.0 Liver cell carcinoma; R65.10 Systemic inflammatory response syndrome (SIRS) of non-infectious origin without acute organ dysfunction; N17.9 Acute kidney failure, unspecified; R64 Cachexia; Z68.1 Body mass index [BMI] 19.9 or less, adult; K76.6 Portal hypertension; F10.188 Alcohol abuse with other alcohol-induced disorder; F17.210 Nicotine dependence, cigarettes, uncomplicated; D53.9 Nutritional anemia, unspecified; E78.5 Hyperlipidemia, unspecified; K80.20 Calculus of gallbladder without cholecystitis without obstruction; K31.89 Other diseases of stomach and duodenum; Z79.84 Long term (current) use of oral hypoglycemic drugs; Z79.899 Other long term (current) drug therapy; Z28.21 Immunization not carried out because of patient refusal
CPT/HCPCS: 36415; 36416; 36430; 49083; 71045; 74018; 74170; 74183; 76705; 80053; 81003; 81015; 82010; 82042; 82105; 82140; 82274; 82330; 82550; 82607; 82728; 82746; 82803; 82805; 83540; 83550; 83605; 83690; 83735; 83880; 83930; 84100; 84157; 84484; 85025; 85060; 85610; 85730; 86704; 86706; 86780; 86850; 86900; 86901; 87040; 87070; 87086; 87205; 87340; 87389; 87521; 87804; 89051; 93005; 94760; 96360; 96361; 96365; 96375; A9579; C9113; J0692; J1815; J2354; J2704; J3370; J3411; J3480; J3490; J7042; J7050; P9016; Q0162